=== PATIENT | male | born 1970 | race Caucasian/White ===

== ENCOUNTER 2017-11-03 03:55 | Emergency (ER) | payer MEDICARE, MEDICAID ==
[~2017-11-03] VITALS: Ht 170.2 cm; Wt 100.0 kg
[~2017-11-03 03:55] MED LIST: ALLO100T PO; AMLO10TA4 PO; BUSP5TAB3 PO; CLON2TAB PO; DIAZ5TAB PO; DULO60CA45 PO; FLUT1DIS4 INH; GABA-532 PO; HYDR50TA3 PO; LEVA15HF4 INH; LEVO25TA2 PO; MONT10TA21 PO; OLME40TA13 PO; OMEP20CA4 PO
[2017-11-03] MEDS ORDERED: normal saline 1000ML IV soln IVB ONE (04:05)
[2017-11-03 04:29] LABS: BASOPHILS # (AUTO) 0.1 X10'3 (0-0.2); BASOPHILS % (AUTO) 0.7 % (0-1); EOSINOPHILS # (AUTO) 0.4 X10'3 (0-0.9); EOSINOPHILS % (AUTO) 4.3 % (0-6); HEMATOCRIT 38.1 % (42.0-52.0); LYMPHOCYTES # (AUTO) 2.1 X10'3 (1.1-4.8); LYMPHOCYTES % (AUTO) 24.3 % (21-51); MEAN CORPUSCULAR HEMOGLOBIN 29.7 PG (27.0-31.0); MEAN CORPUSCULAR HGB CONC 34.1 % (33.0-36.5); MEAN CORPUSCULAR VOLUME 87.3 FL (78-98); MEAN PLATELET VOLUME 7.4 FL (7.4-10.4); MONOCYTES # (AUTO) 0.8 X10'3 (0-0.9); MONOCYTES % (AUTO) 9.8 % (2-12); NEUTROPHILS # (AUTO) 5.2 X10'3 (1.8-7.7); NEUTROPHILS % (AUTO) 60.9 % (42-75); PLATELET COUNT 436 X10'3 (140-440); RED BLOOD COUNT 4.37 X10'6 (4.70-6.10); WHITE BLOOD COUNT 8.6 X10'3 (4.5-11.0)
[2017-11-03 04:45] LABS: ALANINE AMINOTRANSFERASE 36 U/L (12-78); ALBUMIN 3.7 G/DL (3.4-5.0); ALBUMIN/GLOBULIN RATIO 0.8 (1.1-1.5); ALKALINE PHOSPHATASE 98 IU/L (46-116); ANION GAP 8 (8-16); ASPARTATE AMINO TRANSFERASE 23 U/L (10-37); BILIRUBIN,TOTAL 0.3 MG/DL (0.1-1.0); BLOOD UREA NITROGEN 7 MG/DL (7-18); BUN/CREATININE RATIO 8.2 (5.4-32.0); CALCIUM 9.4 MG/DL (8.5-10.1); CHLORIDE 99 MMOL/L (99-107); CREATININE 0.85 MG/DL (0.60-1.10); ETHANOL 0.017 GM/DL (0.0-0.010); GLUCOSE 145 MG/DL (70-104); POTASSIUM 3.2 MMOL/L (3.5-5.1); SODIUM 136 MMOL/L (135-145); TOTAL CARBON DIOXIDE 28.9 MMOL/L (24-32); TOTAL PROTEIN 8.1 G/DL (6.4-8.2); eGFR > 90 ML/MIN
[2017-11-03] MEDS ORDERED: potassium Cl 20 mEq SR tablet PO ONE (05:20)
[2017-11-03] MEDS ORDERED: potassium Cl 20 mEq SR tablet PO STA (05:31)
[2017-11-03 08:17] VITALS: BP 128/69
== END 2017-11-03 09:08 | disposition home or self-care (01) ==
LOC: ER 03:56
DX: E87.6 Hypokalemia (principal); F15.10 Other stimulant abuse, uncomplicated; E78.00 Pure hypercholesterolemia, unspecified; I10 Essential (primary) hypertension; J45.909 Unspecified asthma, uncomplicated; K21.9 Gastro-esophageal reflux disease without esophagitis; G89.29 Other chronic pain; M19.90 Unspecified osteoarthritis, unspecified site; I49.9 Cardiac arrhythmia, unspecified; Z98.890 Other specified postprocedural states; Z88.8 Allergy status to other drugs, medicaments and biological substances; Z79.899 Other long term (current) drug therapy
CPT/HCPCS: 36415; 71045; 80053; 80320; 85025; 93005; 99285; J7030

== ENCOUNTER 2018-02-25 11:17 | Emergency (ER) | payer MEDICARE, MEDICAID ==
[~2018-02-25] VITALS: Ht 170.2 cm; Wt 94.5 kg
[2018-02-25 11:20] VITALS: BP 163/86
[2018-02-25 11:40] LABS: BASOPHILS % (AUTO) 0.7 % (0-1); EOSINOPHILS # (AUTO) 0.6 X10'3 (0-0.9); EOSINOPHILS % (AUTO) 10.1 % (0-6); HEMATOCRIT 39.8 % (42.0-52.0); HEMOGLOBIN 13.6 g/dl (14.0-17.9); LYMPHOCYTES # (AUTO) 1.6 X10'3 (1.1-4.8); LYMPHOCYTES % (AUTO) 26.7 % (21-51); MEAN CORPUSCULAR HEMOGLOBIN 29.6 PG (27.0-31.0); MEAN CORPUSCULAR HGB CONC 34.1 % (33.0-36.5); MEAN PLATELET VOLUME 7.4 FL (7.4-10.4); MONOCYTES # (AUTO) 0.7 X10'3 (0-0.9); MONOCYTES % (AUTO) 11.1 % (2-12); NEUTROPHILS % (AUTO) 51.4 % (42-75); PLATELET COUNT 405 X10'3 (140-440); RED BLOOD COUNT 4.58 X10'6 (4.70-6.10); RED CELL DISTRIBUTION WIDTH 13.2 % (11.5-14.5); WHITE BLOOD COUNT 5.9 X10'3 (4.5-11.0)
[2018-02-25 11:53] LABS: INR 0.9 INR; PARTIAL THROMBOPLASTIN TIME 27 SECONDS (22-32); PROTHROMBIN TIME 9.7 SECONDS (9.0-12.0)
[2018-02-25 11:57] LABS: ALANINE AMINOTRANSFERASE 23 U/L (12-78); ALBUMIN 3.7 G/DL (3.4-5.0); ALBUMIN/GLOBULIN RATIO 0.9 (1.1-1.5); ALKALINE PHOSPHATASE 81 IU/L (46-116); ANION GAP 10 (8-16); ASPARTATE AMINO TRANSFERASE 15 U/L (10-37); BILIRUBIN,TOTAL 0.2 MG/DL (0.1-1.0); BLOOD UREA NITROGEN 8 MG/DL (7-18); BUN/CREATININE RATIO 11.8 (5.4-32.0); CALCIUM 9.6 MG/DL (8.5-10.1); CHLORIDE 98 MMOL/L (99-107); CREATININE 0.68 MG/DL (0.60-1.10); GLUCOSE 118 MG/DL (70-104); POTASSIUM 3.5 MMOL/L (3.5-5.1); SODIUM 135 MMOL/L (135-145); TOTAL CARBON DIOXIDE 26.8 MMOL/L (24-32); eGFR > 90 ML/MIN
== END 2018-02-25 15:05 | disposition home or self-care (01) ==
LOC: ER 11:17
DX: F15.10 Other stimulant abuse, uncomplicated (principal); R07.89 Other chest pain; R06.02 Shortness of breath; R11.0 Nausea; R10.9 Unspecified abdominal pain; E78.00 Pure hypercholesterolemia, unspecified; I10 Essential (primary) hypertension; J44.9 Chronic obstructive pulmonary disease, unspecified; K21.9 Gastro-esophageal reflux disease without esophagitis; G89.29 Other chronic pain; I49.9 Cardiac arrhythmia, unspecified; M19.90 Unspecified osteoarthritis, unspecified site; F11.10 Opioid abuse, uncomplicated; Z98.890 Other specified postprocedural states; Z88.8 Allergy status to other drugs, medicaments and biological substances; Z79.899 Other long term (current) drug therapy
CPT/HCPCS: 36415; 71045; 80053; 84484; 85025; 85610; 85730; 93005; 99285

== ENCOUNTER 2018-07-29 08:19 | Emergency (ER) | payer MEDICARE, MEDICAID ==
[~2018-07-29] VITALS: Ht 170.2 cm; Wt 92.0 kg
[~2018-07-29 08:19] MED LIST changes: +POLY255P2 PO
[2018-07-29 08:53] VITALS: BP 141/84
[2018-07-29] MEDS ORDERED: LIDOcaine 1.5% w/epinephrine 1:200,000 5ml ampul IJ ONE (09:25)
[2018-07-29] MEDS ORDERED: HYDR-569 PO (09:31)
== END 2018-07-29 09:50 | disposition home or self-care (01) ==
LOC: ER 08:20
DX: S62.390A Other fracture of second metacarpal bone, right hand, initial encounter for closed fracture (principal); I10 Essential (primary) hypertension; E78.00 Pure hypercholesterolemia, unspecified; J44.9 Chronic obstructive pulmonary disease, unspecified; K21.9 Gastro-esophageal reflux disease without esophagitis; M19.90 Unspecified osteoarthritis, unspecified site; G89.29 Other chronic pain; M54.9 Dorsalgia, unspecified; F17.210 Nicotine dependence, cigarettes, uncomplicated; F15.90 Other stimulant use, unspecified, uncomplicated; F11.90 Opioid use, unspecified, uncomplicated; Z88.8 Allergy status to other drugs, medicaments and biological substances; Y04.2XXA Assault by strike against or bumped into by another person, initial encounter; Y93.89 Activity, other specified; Y92.89 Other specified places as the place of occurrence of the external cause; Y99.8 Other external cause status
CPT/HCPCS: 29125; 73130; 99284; A6449; 64450

== ENCOUNTER 2018-08-09 11:48 | Emergency (ER) | payer MEDICARE, MEDICAID ==
[~2018-08-09] VITALS: Ht 170.2 cm; Wt 95.5 kg
[~2018-08-09 11:48] MED LIST changes: +HYDR-4383 PO
[2018-08-09 11:59] VITALS: BP 106/66
[2018-08-09] MEDS ORDERED: NALO4SPR NAS (12:21)
== END 2018-08-09 12:38 | disposition home or self-care (01) ==
LOC: ER 11:49
DX: F15.10 Other stimulant abuse, uncomplicated (principal); F11.10 Opioid abuse, uncomplicated; F41.0 Panic disorder [episodic paroxysmal anxiety]; R06.02 Shortness of breath; E78.00 Pure hypercholesterolemia, unspecified; I10 Essential (primary) hypertension; J45.909 Unspecified asthma, uncomplicated; J44.9 Chronic obstructive pulmonary disease, unspecified; K21.9 Gastro-esophageal reflux disease without esophagitis; G89.29 Other chronic pain; F41.9 Anxiety disorder, unspecified; M10.9 Gout, unspecified; Z79.899 Other long term (current) drug therapy; Z87.11 Personal history of peptic ulcer disease
CPT/HCPCS: 93005; 99284

== ENCOUNTER 2018-08-18 13:11 | Outpatient (CLI) | payer MEDICARE, MEDICAID ==
[2018-08-18 13:08] VITALS: BP 161/89
[~2018-08-18 13:11] MED LIST changes: +NALO4SPR NAS
== END 2018-08-18 13:39 | disposition home or self-care (01) ==
LOC: ORTHO 13:11
PROVIDERS: ATTEND Nurse Practitioner Family
DX: S62.390A Other fracture of second metacarpal bone, right hand, initial encounter for closed fracture (principal); F15.90 Other stimulant use, unspecified, uncomplicated; F11.90 Opioid use, unspecified, uncomplicated; F10.10 Alcohol abuse, uncomplicated; E03.9 Hypothyroidism, unspecified; E78.00 Pure hypercholesterolemia, unspecified; J44.9 Chronic obstructive pulmonary disease, unspecified; K21.9 Gastro-esophageal reflux disease without esophagitis; G89.29 Other chronic pain; I10 Essential (primary) hypertension; F41.9 Anxiety disorder, unspecified; F32.9 Major depressive disorder, single episode, unspecified; M10.9 Gout, unspecified; F17.210 Nicotine dependence, cigarettes, uncomplicated; Z86.73 Personal history of transient ischemic attack (TIA), and cerebral infarction without residual deficits; Z91.030 Bee allergy status; Z79.899 Other long term (current) drug therapy; Z88.8 Allergy status to other drugs, medicaments and biological substances; X58.XXXA Exposure to other specified factors, initial encounter; Y93.89 Activity, other specified; Y92.89 Other specified places as the place of occurrence of the external cause; Y99.8 Other external cause status
CPT/HCPCS: 73130; 99213

== ENCOUNTER 2018-11-20 07:20 | Emergency (ER) | payer MEDICARE, MEDICAID ==
[~2018-11-20] VITALS: Ht 170.2 cm; Wt 88.2 kg
[~2018-11-20 07:20] MED LIST changes: +POLY255P19 PO; -POLY255P2 PO
[2018-11-20 07:23] VITALS: BP 122/65
--- NOTE | 2018-11-20 07:35 | NUR ---
DR. WEEMS AT BEDSIDE.
[2018-11-20] MEDS ORDERED: normal saline 1000ML IV soln IVB ONE (07:40)
[2018-11-20] MEDS ORDERED: ondansetron 4mg rapidly disintigrating tab PO ONE (07:40)
[2018-11-20 08:00] LABS: BASOPHILS # (AUTO) 0.1 X10'3 (0-0.2); BASOPHILS % (AUTO) 0.9 % (0-1); EOSINOPHILS # (AUTO) 0.4 X10'3 (0-0.9); EOSINOPHILS % (AUTO) 4.2 % (0-6); HEMATOCRIT 40.7 % (42.0-52.0); LYMPHOCYTES # (AUTO) 2.4 X10'3 (1.1-4.8); LYMPHOCYTES % (AUTO) 25.2 % (21-51); MEAN CORPUSCULAR HEMOGLOBIN 29.8 PG (27.0-31.0); MEAN CORPUSCULAR HGB CONC 34.4 % (33.0-36.5); MEAN CORPUSCULAR VOLUME 86.8 FL (78-98); MEAN PLATELET VOLUME 7.5 FL (7.4-10.4); MONOCYTES # (AUTO) 0.9 X10'3 (0-0.9); MONOCYTES % (AUTO) 10.1 % (2-12); NEUTROPHILS # (AUTO) 5.6 X10'3 (1.8-7.7); NEUTROPHILS % (AUTO) 59.6 % (42-75); PLATELET COUNT 407 X10'3 (140-440); RED BLOOD COUNT 4.69 X10'6 (4.70-6.10); RED CELL DISTRIBUTION WIDTH 13.1 % (11.5-14.5); WHITE BLOOD COUNT 9.4 X10'3 (4.5-11.0)
[2018-11-20 08:18] LABS: ALANINE AMINOTRANSFERASE 27 U/L (12-78); ALBUMIN 3.9 G/DL (3.4-5.0); ALBUMIN/GLOBULIN RATIO 0.9 (1.1-1.5); ALKALINE PHOSPHATASE 72 IU/L (46-116); ANION GAP 14 (8-16); ASPARTATE AMINO TRANSFERASE 17 U/L (10-37); BILIRUBIN,TOTAL 0.3 MG/DL (0.1-1.0); BLOOD UREA NITROGEN 17 MG/DL (7-18); BUN/CREATININE RATIO 17.5 (5.4-32.0); CALCIUM 9.3 MG/DL (8.5-10.1); CHLORIDE 98 MMOL/L (99-107); CREATININE 0.97 MG/DL (0.60-1.10); GLUCOSE 109 MG/DL (70-104); LIPASE 241 U/L (73-393); POTASSIUM 3.8 MMOL/L (3.5-5.1); SODIUM 135 MMOL/L (135-145); TOTAL PROTEIN 8.2 G/DL (6.4-8.2); eGFR 83 ML/MIN
[2018-11-20] MEDS ORDERED: ONDA4TAB6 PO (08:38)
== END 2018-11-20 08:45 | disposition home or self-care (01) ==
LOC: ER 07:21
DX: R42 Dizziness and giddiness (principal); R11.0 Nausea; R10.84 Generalized abdominal pain; R19.7 Diarrhea, unspecified; E78.00 Pure hypercholesterolemia, unspecified; I10 Essential (primary) hypertension; J44.9 Chronic obstructive pulmonary disease, unspecified; K21.9 Gastro-esophageal reflux disease without esophagitis; M19.90 Unspecified osteoarthritis, unspecified site; G89.29 Other chronic pain; M10.9 Gout, unspecified; F15.90 Other stimulant use, unspecified, uncomplicated; F11.90 Opioid use, unspecified, uncomplicated; F17.200 Nicotine dependence, unspecified, uncomplicated; Z98.890 Other specified postprocedural states; Z88.8 Allergy status to other drugs, medicaments and biological substances; Z79.899 Other long term (current) drug therapy
CPT/HCPCS: 36415; 80053; 82948; 83690; 85025; 96360; 96361; 99283; J7030

== ENCOUNTER 2020-01-12 06:09 | Emergency (ER) | payer OTHER, MEDICAID ==
[~2020-01-12] VITALS: Ht 167.6 cm; Wt 95.5 kg
[~2020-01-12 06:09] MED LIST changes: -ALLO100T PO; -CLON2TAB PO; -DIAZ5TAB PO; -DULO60CA45 PO; -HYDR-4383 PO; +HYDR25TA4 PO; -HYDR50TA3 PO; -LEVO25TA2 PO; +LEVO50TA8 PO; +METF500T20 PO; -NALO4SPR NAS; +NICO-687 TD; -POLY255P19 PO
[2020-01-12 06:22] VITALS: BP 168/87
[2020-01-12] MEDS ORDERED: HYDR-3686 PO (06:25)
[2020-01-12] MEDS ORDERED: PRED20TA PO (06:25)
== END 2020-01-12 06:32 | disposition home or self-care (01) ==
LOC: ER 06:09
DX: L25.9 Unspecified contact dermatitis, unspecified cause (principal); E78.00 Pure hypercholesterolemia, unspecified; I10 Essential (primary) hypertension; J44.9 Chronic obstructive pulmonary disease, unspecified; G47.30 Sleep apnea, unspecified; K21.9 Gastro-esophageal reflux disease without esophagitis; M19.90 Unspecified osteoarthritis, unspecified site; G89.29 Other chronic pain; F41.9 Anxiety disorder, unspecified; F31.9 Bipolar disorder, unspecified; F41.0 Panic disorder [episodic paroxysmal anxiety]; F15.90 Other stimulant use, unspecified, uncomplicated; F11.90 Opioid use, unspecified, uncomplicated; F17.200 Nicotine dependence, unspecified, uncomplicated; Z98.890 Other specified postprocedural states; Z88.8 Allergy status to other drugs, medicaments and biological substances; Z79.899 Other long term (current) drug therapy
CPT/HCPCS: 99283

== ENCOUNTER 2020-05-04 19:31 | Emergency (ER) | payer MEDICARE, MEDICAID ==
[~2020-05-04] VITALS: Ht 170.2 cm; Wt 97.7 kg
[~2020-05-04 19:31] MED LIST changes: +METF-900 PO; -METF500T20 PO
[2020-05-04 20:12] LABS: BASOPHILS # (AUTO) 0.1 X10'3 (0-0.2); BASOPHILS % (AUTO) 1.1 % (0-1); EOSINOPHILS # (AUTO) 0.7 X10'3 (0-0.9); EOSINOPHILS % (AUTO) 7.2 % (0-6); HEMATOCRIT 39.9 % (42.0-52.0); HEMOGLOBIN 13.5 g/dl (14.0-17.9); LYMPHOCYTES # (AUTO) 1.5 X10'3 (1.1-4.8); LYMPHOCYTES % (AUTO) 15.6 % (21-51); MEAN CORPUSCULAR HEMOGLOBIN 29.3 PG (27.0-31.0); MEAN CORPUSCULAR HGB CONC 33.7 g/dL (33.0-36.5); MEAN CORPUSCULAR VOLUME 86.9 FL (78-98); MEAN PLATELET VOLUME 7.3 FL (7.4-10.4); MONOCYTES % (AUTO) 10.7 % (2-12); NEUTROPHILS # (AUTO) 6.1 X10'3 (1.8-7.7); NEUTROPHILS % (AUTO) 65.4 % (42-75); PLATELET COUNT 400 X10'3 (140-440); RED CELL DISTRIBUTION WIDTH 13.7 % (11.5-14.5); WHITE BLOOD COUNT 9.3 X10'3 (4.5-11.0)
[2020-05-04 20:21] LABS: ALANINE AMINOTRANSFERASE 40 U/L (12-78); ALBUMIN 3.7 G/DL (3.4-5.0); ALBUMIN/GLOBULIN RATIO 0.9 (1.1-1.5); ALKALINE PHOSPHATASE 80 IU/L (46-116); ANION GAP 10 (8-16); ASPARTATE AMINO TRANSFERASE 34 U/L (10-37); BILIRUBIN,TOTAL 0.3 MG/DL (0.1-1.0); BLOOD UREA NITROGEN 7 MG/DL (7-18); BUN/CREATININE RATIO 8.9 (5.4-32.0); CALCIUM 8.7 MG/DL (8.5-10.1); CHLORIDE 99 MMOL/L (99-107); CREATININE 0.79 MG/DL (0.60-1.10); GLUCOSE 112 MG/DL (70-104); SODIUM 139 MMOL/L (135-145); TOTAL CARBON DIOXIDE 30.4 MMOL/L (24-32); TOTAL PROTEIN 7.8 G/DL (6.4-8.2); eGFR > 90 ML/MIN
[2020-05-04 20:26] LABS: POTASSIUM 2.6 MMOL/L (3.5-5.1)
[2020-05-04] MEDS ORDERED: potassium Cl 20 mEq SR tablet PO STA (20:38)
[2020-05-04] MEDS ORDERED: potassium Cl 10 mEq/100mL bag IV ONE (20:40)
[2020-05-04] MEDS ORDERED: potassium CL 10mEq/100ml bag 100 ML IV ONE (20:55)
[2020-05-04 22:14] VITALS: BP 155/87
--- NOTE | 2020-05-04 22:16 | NUR ---
CALLED [facility] FOR [facility] AT 22:14 ETA 15 MINS
== END 2020-05-04 22:19 | disposition home or self-care (01) ==
LOC: ER 19:31
DX: E87.6 Hypokalemia (principal); R53.1 Weakness; R55 Syncope and collapse; E78.00 Pure hypercholesterolemia, unspecified; I10 Essential (primary) hypertension; J44.9 Chronic obstructive pulmonary disease, unspecified; G47.30 Sleep apnea, unspecified; K21.9 Gastro-esophageal reflux disease without esophagitis; M19.90 Unspecified osteoarthritis, unspecified site; G89.29 Other chronic pain; F41.9 Anxiety disorder, unspecified; F31.9 Bipolar disorder, unspecified; F15.90 Other stimulant use, unspecified, uncomplicated; F11.90 Opioid use, unspecified, uncomplicated; Z98.890 Other specified postprocedural states; Z86.69 Personal history of other diseases of the nervous system and sense organs; Z79.899 Other long term (current) drug therapy
CPT/HCPCS: 36415; 71045; 80053; 84484; 85025; 93005; 96365; 99285; J3480

== ENCOUNTER 2020-06-06 02:02 | Emergency (ER) | payer MEDICARE, MEDICAID ==
[~2020-06-06] VITALS: Ht 167.6 cm; Wt 95.5 kg
--- NOTE | 2020-06-06 02:20 | NUR ---
PATIENT ADMITS TO ETOH CONSUMTION UP TO ARRIVAL OF EMS, REPORTS SMOKING METHAMPHETAMINE YESTERDAY WELL SMOKING 1/2 PACK A DAY AND MARIJUANNA USE
[2020-06-06 02:28] LABS: BASOPHILS # (AUTO) 0.1 X10'3 (0-0.2); BASOPHILS % (AUTO) 1.1 % (0-1); EOSINOPHILS # (AUTO) 0.4 X10'3 (0-0.9); EOSINOPHILS % (AUTO) 6.5 % (0-6); HEMATOCRIT 37.6 % (42.0-52.0); LYMPHOCYTES # (AUTO) 1.7 X10'3 (1.1-4.8); LYMPHOCYTES % (AUTO) 26.9 % (21-51); MEAN CORPUSCULAR HEMOGLOBIN 29.6 PG (27.0-31.0); MEAN CORPUSCULAR HGB CONC 34.6 g/dL (33.0-36.5); MEAN CORPUSCULAR VOLUME 85.5 FL (78-98); MONOCYTES # (AUTO) 0.8 X10'3 (0-0.9); MONOCYTES % (AUTO) 12.9 % (2-12); NEUTROPHILS # (AUTO) 3.3 X10'3 (1.8-7.7); NEUTROPHILS % (AUTO) 52.6 % (42-75); PLATELET COUNT 354 X10'3 (140-440); RED CELL DISTRIBUTION WIDTH 14.2 % (11.5-14.5); WHITE BLOOD COUNT 6.3 X10'3 (4.5-11.0)
[2020-06-06 02:47] LABS: ALANINE AMINOTRANSFERASE 44 U/L (12-78); ALBUMIN 3.6 G/DL (3.4-5.0); ALBUMIN/GLOBULIN RATIO 0.9 (1.1-1.5); ALKALINE PHOSPHATASE 79 IU/L (46-116); ANION GAP 8 (8-16); ASPARTATE AMINO TRANSFERASE 33 U/L (10-37); BILIRUBIN,TOTAL 0.3 MG/DL (0.1-1.0); BLOOD UREA NITROGEN 8 MG/DL (7-18); BUN/CREATININE RATIO 10.8 (5.4-32.0); CALCIUM 8.6 MG/DL (8.5-10.1); CHLORIDE 98 MMOL/L (99-107); CREATININE 0.74 MG/DL (0.60-1.10); GLUCOSE 134 MG/DL (70-104); SODIUM 136 MMOL/L (135-145); TOTAL CARBON DIOXIDE 29.9 MMOL/L (24-32); TOTAL PROTEIN 7.5 G/DL (6.4-8.2); eGFR > 90 ML/MIN
[2020-06-06 02:53] LABS: POTASSIUM 2.8 MMOL/L (3.5-5.1)
[2020-06-06] MEDS ORDERED: potassium Cl 20 mEq SR tablet PO STA (02:59)
[2020-06-06] MEDS ORDERED: magnesium oxide 400mg tablet PO ONE (03:00)
[2020-06-06 04:07] VITALS: BP 142/87
== END 2020-06-06 04:09 | disposition home or self-care (01) ==
LOC: ER 02:02
DX: R07.89 Other chest pain (principal); E87.6 Hypokalemia; F10.10 Alcohol abuse, uncomplicated; R06.02 Shortness of breath; E78.00 Pure hypercholesterolemia, unspecified; I10 Essential (primary) hypertension; J45.909 Unspecified asthma, uncomplicated; J44.9 Chronic obstructive pulmonary disease, unspecified; K21.9 Gastro-esophageal reflux disease without esophagitis; M19.90 Unspecified osteoarthritis, unspecified site; G89.29 Other chronic pain; M10.9 Gout, unspecified; F41.9 Anxiety disorder, unspecified; F31.9 Bipolar disorder, unspecified; F15.90 Other stimulant use, unspecified, uncomplicated; F11.90 Opioid use, unspecified, uncomplicated; Z86.69 Personal history of other diseases of the nervous system and sense organs; Z87.11 Personal history of peptic ulcer disease; Z98.890 Other specified postprocedural states; Z88.8 Allergy status to other drugs, medicaments and biological substances; Z79.899 Other long term (current) drug therapy; Y90.9 Presence of alcohol in blood, level not specified
CPT/HCPCS: 36415; 71045; 80053; 83880; 84484; 85025; 93005; 99285

== ENCOUNTER 2020-07-12 09:58 | Emergency (ER) | payer BC, MEDICAID ==
[~2020-07-12] VITALS: Ht 170.2 cm; Wt 93.2 kg
[2020-07-12 10:51] LABS: BASOPHILS # (AUTO) 0.1 X10'3 (0-0.2); BASOPHILS % (AUTO) 0.8 % (0-1); EOSINOPHILS # (AUTO) 0.3 X10'3 (0-0.9); EOSINOPHILS % (AUTO) 3.2 % (0-6); HEMATOCRIT 38.6 % (42.0-52.0); HEMOGLOBIN 13.7 g/dl (14.0-17.9); LYMPHOCYTES % (AUTO) 9.3 % (21-51); MEAN CORPUSCULAR HGB CONC 35.4 g/dL (33.0-36.5); MEAN CORPUSCULAR VOLUME 84.9 FL (78-98); MEAN PLATELET VOLUME 7.7 FL (7.4-10.4); MONOCYTES # (AUTO) 1.6 X10'3 (0-0.9); MONOCYTES % (AUTO) 14.8 % (2-12); NEUTROPHILS # (AUTO) 7.7 X10'3 (1.8-7.7); NEUTROPHILS % (AUTO) 71.9 % (42-75); PLATELET COUNT 261 X10'3 (140-440); RED BLOOD COUNT 4.54 X10'6 (4.70-6.10); RED CELL DISTRIBUTION WIDTH 13.4 % (11.5-14.5); WHITE BLOOD COUNT 10.7 X10'3 (4.5-11.0)
[2020-07-12 11:15] LABS: ALANINE AMINOTRANSFERASE 75 U/L (12-78); ALBUMIN 3.6 G/DL (3.4-5.0); ALBUMIN/GLOBULIN RATIO 0.8 (1.1-1.5); ALKALINE PHOSPHATASE 107 IU/L (46-116); ANION GAP 8 (8-16); ASPARTATE AMINO TRANSFERASE 81 U/L (10-37); BILIRUBIN,TOTAL 0.7 MG/DL (0.1-1.0); BLOOD UREA NITROGEN 6 MG/DL (7-18); CALCIUM 8.7 MG/DL (8.5-10.1); CHLORIDE 89 MMOL/L (99-107); GLUCOSE 133 MG/DL (70-104); SODIUM 130 MMOL/L (135-145); TOTAL CARBON DIOXIDE 32.7 MMOL/L (24-32); TOTAL PROTEIN 7.9 G/DL (6.4-8.2); eGFR > 90 ML/MIN
[2020-07-12 11:19] LABS: POTASSIUM 2.8 MMOL/L (3.5-5.1)
[2020-07-12] MEDS ORDERED: potassium Cl 20 mEq SR tablet PO STA (11:29)
[2020-07-12] MEDS ORDERED: magnesium oxide 400mg tablet PO ONE (11:30)
[2020-07-12] MEDS ORDERED: POTASSIUM BICARB 20meq eff tab 20 MEQ TABLET.EFF PO STA (11:36)
[2020-07-12 12:06] VITALS: BP 137/84
[2020-07-12] MEDS ORDERED: POTASSIUM BICARB 20meq eff tab 20 MEQ TABLET.EFF PO ONE (12:30)
== END 2020-07-12 12:11 | disposition home or self-care (01) ==
LOC: ER 09:58
DX: E87.6 Hypokalemia (principal); R07.89 Other chest pain; R53.1 Weakness; R11.0 Nausea; E78.00 Pure hypercholesterolemia, unspecified; I10 Essential (primary) hypertension; J44.9 Chronic obstructive pulmonary disease, unspecified; G47.30 Sleep apnea, unspecified; K21.9 Gastro-esophageal reflux disease without esophagitis; M19.90 Unspecified osteoarthritis, unspecified site; G89.29 Other chronic pain; F41.9 Anxiety disorder, unspecified; F31.9 Bipolar disorder, unspecified; F15.90 Other stimulant use, unspecified, uncomplicated; F11.90 Opioid use, unspecified, uncomplicated; Z88.8 Allergy status to other drugs, medicaments and biological substances; Z98.890 Other specified postprocedural states; Z79.899 Other long term (current) drug therapy
CPT/HCPCS: 36415; 71045; 80053; 83880; 84484; 85025; 93005; 99285

== ENCOUNTER 2020-10-20 20:12 | Emergency (ER) | payer BC, MEDICAID ==
[~2020-10-20] VITALS: Ht 167.6 cm; Wt 96.3 kg
[2020-10-20 21:03] LABS: BASOPHILS # (AUTO) 0.1 X10'3 (0-0.2); BASOPHILS % (AUTO) 0.9 % (0-1); EOSINOPHILS # (AUTO) 0.5 X10'3 (0-0.9); EOSINOPHILS % (AUTO) 7.5 % (0-6); HEMATOCRIT 40.1 % (42.0-52.0); HEMOGLOBIN 13.6 g/dl (14.0-17.9); LYMPHOCYTES % (AUTO) 29.5 % (21-51); MEAN CORPUSCULAR HEMOGLOBIN 30.1 PG (27.0-31.0); MEAN CORPUSCULAR VOLUME 88.5 FL (78-98); MEAN PLATELET VOLUME 7.3 FL (7.4-10.4); MONOCYTES # (AUTO) 0.8 X10'3 (0-0.9); MONOCYTES % (AUTO) 11.8 % (2-12); NEUTROPHILS # (AUTO) 3.4 X10'3 (1.8-7.7); NEUTROPHILS % (AUTO) 50.3 % (42-75); PLATELET COUNT 321 X10'3 (140-440); RED BLOOD COUNT 4.53 X10'6 (4.70-6.10); RED CELL DISTRIBUTION WIDTH 13.6 % (11.5-14.5); WHITE BLOOD COUNT 6.8 X10'3 (4.5-11.0)
[2020-10-20 21:24] VITALS: BP 108/72
[2020-10-20 21:25] LABS: ALANINE AMINOTRANSFERASE 34 U/L (12-78); ALBUMIN 3.6 G/DL (3.4-5.0); ALBUMIN/GLOBULIN RATIO 0.9 (1.1-1.5); ALKALINE PHOSPHATASE 97 IU/L (46-116); ANION GAP 10 (8-16); ASPARTATE AMINO TRANSFERASE 27 U/L (10-37); BILIRUBIN,TOTAL 0.3 MG/DL (0.1-1.0); BLOOD UREA NITROGEN 7 MG/DL (7-18); CALCIUM 8.5 MG/DL (8.5-10.1); CHLORIDE 102 MMOL/L (99-107); GLUCOSE 139 MG/DL (70-104); POTASSIUM 3.6 MMOL/L (3.5-5.1); SODIUM 139 MMOL/L (135-145); TOTAL PROTEIN 7.6 G/DL (6.4-8.2); eGFR > 90 ML/MIN
--- NOTE | 2020-10-20 22:34 | NUR ---
UPON EDUCATION OF AMA FORM, PATIENT BECAME AGITATED WHEN ASKED WHY HE WOULD NOT LET THE ED FINISH HIS WORK-UP AND TREATMENT. HE SAID HE NEEDED TO GO HOME AND "FEED HIS DOG." APPROPRIATE USE OF EMS SERVICES WERE DISCUSSED. PATIENT WAS AGITATED AND YELLING HE EXITED THE ED.
== END 2020-10-20 22:40 | disposition left against medical advice (07) ==
LOC: ER 20:12
DX: R07.89 Other chest pain (principal); F10.99 Alcohol use, unspecified with unspecified alcohol-induced disorder; F15.90 Other stimulant use, unspecified, uncomplicated; I11.0 Hypertensive heart disease with heart failure; I50.9 Heart failure, unspecified; E78.00 Pure hypercholesterolemia, unspecified; J44.9 Chronic obstructive pulmonary disease, unspecified; K21.9 Gastro-esophageal reflux disease without esophagitis; G89.29 Other chronic pain; M19.90 Unspecified osteoarthritis, unspecified site; G47.30 Sleep apnea, unspecified; M10.9 Gout, unspecified; Z86.61 Personal history of infections of the central nervous system; Z88.8 Allergy status to other drugs, medicaments and biological substances; Z79.899 Other long term (current) drug therapy; Z95.0 Presence of cardiac pacemaker
CPT/HCPCS: 36415; 71045; 80053; 83880; 84484; 85025; 93005; 99285

== ENCOUNTER 2021-08-29 10:38 | Inpatient (IN) | payer BC, MEDICAID ==
[~2021-08-29] VITALS: Ht 167.6 cm; Wt 109.0 kg
[2021-08-29] MEDS ORDERED: normal saline 1000ML IV soln IVB ONE (11:55)
[2021-08-29 12:17] LABS: BASOPHILS % (AUTO) 0.3 % (0-1); EOSINOPHILS # (AUTO) 0.3 X10'3 (0-0.9); EOSINOPHILS % (AUTO) 4.3 % (0-6); HEMATOCRIT 35.6 % (42.0-52.0); HEMOGLOBIN 12.3 g/dl (14.0-17.9); LYMPHOCYTES # (AUTO) 0.5 X10'3 (1.1-4.8); LYMPHOCYTES % (AUTO) 6.4 % (21-51); MEAN CORPUSCULAR HEMOGLOBIN 30.2 PG (27.0-31.0); MEAN CORPUSCULAR HGB CONC 34.5 g/dL (33.0-36.5); MEAN CORPUSCULAR VOLUME 87.6 FL (78-98); MEAN PLATELET VOLUME 8.4 FL (7.4-10.4); MONOCYTES # (AUTO) 0.8 X10'3 (0-0.9); MONOCYTES % (AUTO) 10.1 % (2-12); NEUTROPHILS # (AUTO) 6.3 X10'3 (1.8-7.7); NEUTROPHILS % (AUTO) 78.9 % (42-75); PLATELET COUNT 170 X10'3 (140-440); RED BLOOD COUNT 4.07 X10'6 (4.70-6.10); RED CELL DISTRIBUTION WIDTH 15.3 % (11.5-14.5)
[2021-08-29 12:37] LABS: ALANINE AMINOTRANSFERASE 746 U/L (12-78); ALBUMIN 2.6 G/DL (3.4-5.0); ALKALINE PHOSPHATASE 695 IU/L (46-116); ANION GAP 17 (8-16); BILIRUBIN,TOTAL 5.3 MG/DL (0.1-1.0); BLOOD UREA NITROGEN 46 MG/DL (7-18); BUN/CREATININE RATIO 8.5 (5.4-32.0); CALCIUM 6.7 MG/DL (8.5-10.1); CHLORIDE 84 MMOL/L (99-107); CREATININE 5.44 MG/DL (0.60-1.10); GLUCOSE 127 MG/DL (70-104); SODIUM 121 MMOL/L (135-145); TOTAL CARBON DIOXIDE 19.7 MMOL/L (24-32); eGFR 11 ML/MIN
[2021-08-29 12:41] LABS: ALBUMIN/GLOBULIN RATIO 0.7 (1.1-1.5); ASPARTATE AMINO TRANSFERASE 1076 U/L (10-37); POTASSIUM 3.9 MMOL/L (3.5-5.1); TOTAL PROTEIN 6.5 G/DL (6.4-8.2)
[2021-08-29] MEDS ORDERED: normal saline 1000ML IV soln IV ONE (12:50)
[2021-08-29] MEDS ORDERED: piperacillin/tazo 3.375gm/50ml 50 ML IV ONE (12:50)
[2021-08-29] MEDS ORDERED: NOREPINEPHRINE BITARTRATE/D5W 250 ML IV PRN (14:20)
[2021-08-29] MEDS ORDERED: Insulin Reg/NS 100units/100mL 100 ML IV SCH (14:40)
[2021-08-29] MEDS ORDERED: magnesium 4gm in 100ml NS 100 ML IV PRN (14:40)
[2021-08-29] MEDS ORDERED: sodium phosphate inj. 15 MMOL in dextrose 5%-water 250 ML IV PRN (14:40)
[2021-08-29] MEDS ORDERED: FENTANYL-0.9 % NACL/PF 100 ML IV SCH ×2 (14:40→16:30)
[2021-08-29] MEDS ORDERED: Neutra Phos packet PO PRN (14:40)
[2021-08-29] MEDS ORDERED: magnesium Cl slow-release 64mg tablet PO PRN (14:40)
[2021-08-29] MEDS ORDERED: sodium phosphate inj. 30 MMOL in dextrose 5%-water 250 ML IV PRN (14:40)
[2021-08-29] MEDS ORDERED: albuterol 2.5 MG/3 ML nebule NEB PRN (14:40)
[2021-08-29] MEDS ORDERED: magnesium hydroxide 30ml (MOM) UD suspension PO PRN (14:40)
[2021-08-29] MEDS ORDERED: acetaminophen 325mg tablet PO PRN (14:40)
[2021-08-29] MEDS ORDERED: potassium Cl 40MEQ/250ML bag 270 ML IV PRN (14:40)
[2021-08-29] MEDS ORDERED: potassium Cl 40MEQ/1/2NS 520ml 520 ML IV PRN (14:40)
[2021-08-29] MEDS ORDERED: midazolam 100mg in NS 100ml 100 ML IV SCH (14:40)
[2021-08-29] MEDS ORDERED: ondansetron/PF 4mg/2ml inj IV PRN (14:40)
[2021-08-29] MEDS: normal saline 1000ml 1,000 ML IV SCH ×2 (14:40→22:07)
[2021-08-29] MEDS ORDERED: magnesium 2GM in 50ml NS 50 ML IV PRN (14:40)
[2021-08-29] MEDS ORDERED: dextrose 50%-water 50ml dispensing syringe IV PRN (14:40)
--- NOTE | 2021-08-29 14:45 | NUR ---
Assumed care of pt
--- NOTE | 2021-08-29 15:18 | NUR ---
Assisted with Art line setup
[2021-08-29 15:28] LABS: ABG BASE EXCESS -10.1 mmol/L (-2.0-2.0); ABG HCO3 15.6 mmol/L (22.0-26.0); ABG OXYGEN SATURATION 93.2 % (94-97); ABG PCO2 (T) 33.5 mmHg (35.0-48.0); FCOHb 0.2 % (0.0-3.9); FMetHb 0.1 % (0.0-1.5); FO2Hb 92.9 % (94-97); TOTAL HEMOGLOBIN 11.9 G/dl (14.0-18.0)
[2021-08-29] MEDS: NORepinephrine 8mg/ 250ml NS 250 ML IV PRN (15:52)
[2021-08-29] MEDS ORDERED: piperacillin/tazo 3.375gm/50ml 50 ML IV SCH (16:00)
[2021-08-29] MEDS ORDERED: albumin (Human) 5% 250ml 250 ML IV ONE (16:00)
[2021-08-29] MEDS ORDERED: SACU1TAB4 PO (16:02)
[2021-08-29] MEDS ORDERED: ATOR40TA72 PO (16:02)
[2021-08-29] MEDS ORDERED: CARV6.253 PO (16:02)
[2021-08-29] MEDS ORDERED: HYDR-3686 PO (16:02)
[2021-08-29] MEDS ORDERED: DULO30CA52 PO (16:02)
[2021-08-29] MEDS ORDERED: DUPI300S SQ (16:02)
[2021-08-29] MEDS ORDERED: POTA10TA37 PO (16:02)
[2021-08-29] MEDS ORDERED: ALBU17AE26 IH (16:02)
[2021-08-29] MEDS ORDERED: NORepinephrine inj. 8 MG in dextrose 5%-water 242 ML IV SCH (16:25)
--- NOTE | 2021-08-29 16:33 | NUR ---
relieving RN for break, pt is resting quietly gurney, alert and oriented x3, resp even and unlabored, increased levaphed gtt per art line reading and MAP
--- NOTE | 2021-08-29 17:02 | NUR ---
report to Melba SAUCEDO
[2021-08-29 17:42] LABS: URINE AMPHETAMINE SCREEN NEGATIVE (Neg); URINE BENZODIAZEPINES SCREEN NEGATIVE (Neg); URINE CANNABINOID SCREEN NEGATIVE (Neg); URINE COCAINE SCREEN NEGATIVE (Neg); URINE METHADONE SCREEN NEGATIVE (Neg); URINE OPIATE SCREEN NEGATIVE (Neg); URINE PHENCYCLIDINE SCREEN NEGATIVE (Neg)
[2021-08-29 17:45] LABS: TOTAL PROTEIN,URINE RANDOM 24.4 MG/DL
[2021-08-29 17:50] LABS: CLARITY,URINE SLIGHTLY CLOUDY (Clear); COLOR,URINE YELLOW (Yellow); GLUCOSE, URINE NEGATIVE (Neg); KETONES,URINE NEGATIVE (Neg); LEUKOCYTE ESTERASE ,URINE NEGATIVE (Neg); NITRITES, URINE NEGATIVE (Neg); OCCULT BLOOD,URINE SMALL (Neg); PROTEIN,URINE NEGATIVE (Neg); UA COLLECTION TYPE CLN CATCH MIDSTREAM; UROBILINOGEN,URINE 0.2 E.U/dL (0.2-1.0)
[2021-08-29 17:51] LABS: URINE BARBITUATE SCREEN NEGATIVE (Neg)
[2021-08-29] MEDS ORDERED: insulin Lispro (HumaLOG) vial - multi-dose SQ SCH (18:00)
[2021-08-29 18:06] LABS: PLATELET COUNT 168 X10'3 (140-440)
[2021-08-29 18:07] LABS: BACTERIA,URINE NONE SEEN /HPF (Neg); RBC,URINE 0-2 /HPF (0-2); WBC,URINE 0-4 /HPF (0-4)
[2021-08-29 18:08] LABS: CAL OXALATE CRYSTALS 3+ /HPF (NEGATIVE); SQUAMOUS EPITHELIAL CELL,UR FEW /LPF (FEW); TRANSITIONAL EPI CELLS,URINE FEW /HPF
[2021-08-29 18:09] LABS: RENAL CELLS, URINE FEW /HPF
[2021-08-29 18:26] LABS: ACETAMINOPHEN < 2.0 UG/ML (10-30)
[2021-08-29] MEDS: docusate sod 100mg capsule PO SCH (18:29)
[2021-08-29 18:36] LABS: D-DIMER 0.23 MG/L FEU (0-0.50); PARTIAL THROMBOPLASTIN TIME 38 SECONDS (22-32)
[2021-08-29 19:00] LABS: HIV ANTIBODY 1&2 RAPID NON-REACTIVE (Neg)
[2021-08-29 19:27] LABS: UA EOSINOPHILS NO EOS /HPF
--- NOTE | 2021-08-29 19:42 | NUR ---
Report called Holland ext [phone]
[2021-08-29] MEDS: vasopressin inj. 40 UNIT in normal saline 50ml IV soln 38 ML IV SCH (19:44)
[2021-08-29 21:00] VITALS: BP 102/46
[2021-08-29 22:00] VITALS: BP 74/39
--- NOTE | 2021-08-29 22:00 | NUR ---
after examining Art line under dressing, it appeared pulled out a little, unable to flush and no wave form on the monitor. Art line discontinued. No hematoma noted at site (Right Femoral).
[2021-08-29] MEDS: piperacillin/tazo 3.375gm/50ml 50 ML IV SCH (22:55)
[2021-08-29 23:00] VITALS: BP 100/45
[2021-08-30] VITALS (23 sets, daily range): BP systolic 80–136; BP diastolic 40–75
[2021-08-30 03:15] LABS: OXYGEN SATURATION (MIXED VEN) 57.3 % (60-80); PO2 MIXED VENOUS (TEMP COR) 30.4 mmHg (35-46)
[2021-08-30 03:23] LABS: BASOPHILS % (AUTO) 0.4 % (0-1); EOSINOPHILS # (AUTO) 0.2 X10'3 (0-0.9); EOSINOPHILS % (AUTO) 3.7 % (0-6); HEMATOCRIT 34.9 % (42.0-52.0); LYMPHOCYTES # (AUTO) 0.6 X10'3 (1.1-4.8); LYMPHOCYTES % (AUTO) 9.9 % (21-51); MEAN CORPUSCULAR HEMOGLOBIN 30.5 PG (27.0-31.0); MEAN CORPUSCULAR HGB CONC 34.4 g/dL (33.0-36.5); MEAN CORPUSCULAR VOLUME 88.8 FL (78-98); MEAN PLATELET VOLUME 8.5 FL (7.4-10.4); MONOCYTES # (AUTO) 0.8 X10'3 (0-0.9); MONOCYTES % (AUTO) 12.7 % (2-12); NEUTROPHILS # (AUTO) 4.7 X10'3 (1.8-7.7); NEUTROPHILS % (AUTO) 73.3 % (42-75); PLATELET COUNT 167 X10'3 (140-440); RED BLOOD COUNT 3.93 X10'6 (4.70-6.10); RED CELL DISTRIBUTION WIDTH 15.2 % (11.5-14.5); WHITE BLOOD COUNT 6.5 X10'3 (4.5-11.0)
[2021-08-30 03:36] LABS: PARTIAL THROMBOPLASTIN TIME 33 SECONDS (22-32)
[2021-08-30 03:47] LABS: ALANINE AMINOTRANSFERASE 579 U/L (12-78); ALBUMIN 2.5 G/DL (3.4-5.0); ALKALINE PHOSPHATASE 770 IU/L (46-116); ANION GAP 13 (8-16); ASPARTATE AMINO TRANSFERASE 805 U/L (10-37); BILIRUBIN,DIRECT 4.4 MG/DL (0-0.3); BILIRUBIN,TOTAL 5.1 MG/DL (0.1-1.0); BLOOD UREA NITROGEN 34 MG/DL (7-18); CALCIUM 6.1 MG/DL (8.5-10.1); CHLORIDE 96 MMOL/L (99-107); CREATININE 3.09 MG/DL (0.60-1.10); GLUCOSE 155 MG/DL (70-104); MAGNESIUM 1.5 MG/DL (1.5-2.4); POTASSIUM 3.8 MMOL/L (3.5-5.1); SODIUM 130 MMOL/L (135-145); TOTAL CARBON DIOXIDE 21.2 MMOL/L (24-32); TROPONIN I < 0.04 NG/ML (0.0-0.05); eGFR 21 ML/MIN
[2021-08-30 03:51] LABS: ALBUMIN/GLOBULIN RATIO 0.6 (1.1-1.5); PHOSPHORUS 3.8 MG/DL (2.3-4.5); TOTAL PROTEIN 6.4 G/DL (6.4-8.2)
[2021-08-30] MEDS: normal saline 1000ml 1,000 ML IV SCH ×4 (04:00→23:48)
[2021-08-30] MEDS: NORepinephrine 8mg/ 250ml NS 250 ML IV PRN ×2 (05:27→11:04)
--- NOTE | 2021-08-30 06:36 | NUR ---
Patient in room ICU 2041. I have received report from Holland SAUCEDO and had the opportunity to ask questions and assume patient care.
[2021-08-30] MEDS ORDERED: levoTHYROXINE sod inj. 100mcg/5 ml vial IV STA (06:44)
[2021-08-30] MEDS ORDERED: levoTHYROXINE 25mcg tablet PO SCH (07:00)
[2021-08-30 07:04] LABS: AMYLASE 50 U/L (25-115); LIPASE 188 U/L (73-393)
[2021-08-30] MEDS ORDERED: pantoprazole 40mg Tablet.DR PO SCH (07:30)
[2021-08-30] MEDS: docusate sod 100mg capsule PO SCH ×3 (08:00→18:36)
[2021-08-30 08:17] LABS: PLATELET ESTIMATE NORMAL; TARGET CELLS 1+; TOTAL CELLS COUNTED 100
[2021-08-30] MEDS: pantoprazole 40 MG vial IV SCH (08:47)
[2021-08-30] MEDS: heparin, porcine 5000 units/ml vial SQ SCH ×3 (08:48→23:46)
[2021-08-30] MEDS: chlordiazePOXIDE 5mg capsule PO SCH ×3 (08:48→19:23)
[2021-08-30] MEDS: duloxetine 30mg CAPSULE.DR PO SCH (08:48)
[2021-08-30] MEDS: piperacillin/tazo 3.375gm/50ml 50 ML IV SCH ×3 (08:49→23:46)
[2021-08-30] MEDS ORDERED: albumin (Human) 5% 250ml 250 ML IV ONE (10:55)
[2021-08-30] MEDS ORDERED: fentaNYL/PF 50MCG/1 ML 2ML syringe IV PRN (10:55)
[2021-08-30] MEDS ORDERED: NORepinephrine 8mg/ 250ml NS 250 ML IV PRN (11:57)
[2021-08-30] MEDS ORDERED: albumin (Human) 5% 250ml 750 ML IV SCH (12:15)
[2021-08-30] MEDS ORDERED: albumin (Human) 5% 250ml 750 ML IV ONE (12:15)
[2021-08-30] MEDS ORDERED: CALCIUM GLUC 1gm/50ml NACL,iso 50 ML IV ONE (12:20)
--- NOTE | 2021-08-30 12:20 | NUR ---
Initial: Pt admit DX septic/hypovolemic shock,transaminitis, acute renal failure, and DM per MD note. Serum Na 130 this AM up from 121 on admit receiving NS w/ hx etoh/meth/heroin abuse though tox screen negative per EMR. MCV WNL. 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 Pt no hx DM though takes metformin at home per EMR; no A1C this admit or A1C hx would benefit from check this admit. Per imaging notes, hepatic steatosis w/ mild jejunal enteritis. Pt pending MRCP today per MD to remain NPO at this time. Noted current ht 127in in EMR true ht 66in per prior admit hx making true BMI 40 this admit. LBM 08/29 w/ abdominal pain persisting per RN. Will continue to monitor for imaging results and nutrition intervention needs. Rec: 1. advance diet per MD to regular; consider carb controlled/heart healthy restrictions IF serum Na improves, elevated A1C this admit, and IF adequate intake once PO 2. monitor for ONS needs once PO diet 3. A1C this admit; no hx DM though takes metformin at home per EMR 4. bowel care per rx 5. weekly wts Addendum: 08/30/21 at [address] Amended: Links added.
[2021-08-30] MEDS: nystatin 15 GM powder TP SCH ×2 (13:29→20:17)
--- NOTE | 2021-08-30 17:48 | NUR ---
Patient received Albumin and Calcium Gluconate. Able to wean Levophed down through shift. Huge urine output. Reddened excoriation to groin with some open skin. Nystatin and calazime cream to groin. Med x 1 with Fentanyl for abdominal pain. Patient states pain is better. Received MRCP. Yolanda well.
--- NOTE | 2021-08-30 18:38 | NUR ---
Problems reprioritized. Patient report given, questions answered & plan of care reviewed with Monserrat SAUCEDO.
[2021-08-30] MEDS: montelukast 10mg tablet PO SCH (20:17)
[2021-08-31] VITALS (24 sets, daily range): BP systolic 84–142; BP diastolic 49–89
[2021-08-31] MEDS: chlordiazePOXIDE 5mg capsule PO SCH ×4 (02:11→19:16)
[2021-08-31 03:15] LABS: BASOPHILS % (AUTO) 0.6 % (0-1); EOSINOPHILS # (AUTO) 0.5 X10'3 (0-0.9); EOSINOPHILS % (AUTO) 10.2 % (0-6); HEMATOCRIT 34.4 % (42.0-52.0); HEMOGLOBIN 11.7 g/dl (14.0-17.9); LYMPHOCYTES # (AUTO) 0.9 X10'3 (1.1-4.8); LYMPHOCYTES % (AUTO) 17.9 % (21-51); MEAN CORPUSCULAR HEMOGLOBIN 29.9 PG (27.0-31.0); MEAN CORPUSCULAR HGB CONC 33.9 g/dL (33.0-36.5); MEAN CORPUSCULAR VOLUME 88.2 FL (78-98); MEAN PLATELET VOLUME 8.6 FL (7.4-10.4); MONOCYTES # (AUTO) 0.8 X10'3 (0-0.9); MONOCYTES % (AUTO) 15.4 % (2-12); NEUTROPHILS # (AUTO) 2.8 X10'3 (1.8-7.7); NEUTROPHILS % (AUTO) 55.9 % (42-75); PLATELET COUNT 152 X10'3 (140-440); RED CELL DISTRIBUTION WIDTH 15.2 % (11.5-14.5); WHITE BLOOD COUNT 5.1 X10'3 (4.5-11.0)
[2021-08-31 03:23] LABS: ALANINE AMINOTRANSFERASE 401 U/L (12-78); ALBUMIN 2.8 G/DL (3.4-5.0); ALKALINE PHOSPHATASE 904 IU/L (46-116); ANION GAP 12 (8-16); ASPARTATE AMINO TRANSFERASE 550 U/L (10-37); BILIRUBIN,TOTAL 4.8 MG/DL (0.1-1.0); BLOOD UREA NITROGEN 15 MG/DL (7-18); BUN/CREATININE RATIO 9.4 (5.4-32.0); CALCIUM 6.5 MG/DL (8.5-10.1); CHLORIDE 103 MMOL/L (99-107); GLUCOSE 113 MG/DL (70-104); MAGNESIUM 1.2 MG/DL (1.5-2.4); POTASSIUM 3.3 MMOL/L (3.5-5.1); SODIUM 140 MMOL/L (135-145); TOTAL CARBON DIOXIDE 24.8 MMOL/L (24-32); eGFR 46 ML/MIN
[2021-08-31 03:33] LABS: ALBUMIN/GLOBULIN RATIO 0.7 (1.1-1.5); PHOSPHORUS 2.5 MG/DL (2.3-4.5); TOTAL PROTEIN 6.7 G/DL (6.4-8.2)
[2021-08-31 03:48] LABS: PARTIAL THROMBOPLASTIN TIME 34 SECONDS (22-32)
[2021-08-31] MEDS: normal saline 1000ml 1,000 ML IV SCH ×2 (06:18→23:07)
--- NOTE | 2021-08-31 06:24 | NUR ---
Patient in bed resting no signs of distress noted . IV fluid infusing as ordered, vital signs documented in interventions, Blood glucose monitoring continued. Ciera care and catheter care done. Patient repositioned for comfort. Updated family member of patient condition via telephone. Call light within reach will continue to monitor and report changes
--- NOTE | 2021-08-31 06:26 | NUR ---
Problems reprioritized. Patient report given, questions answered & plan of care reviewed with Roxana SAUCEDO .
[2021-08-31] MEDS: docusate sod 100mg capsule PO SCH (08:00)
[2021-08-31] MEDS: piperacillin/tazo 3.375gm/50ml 50 ML IV SCH (08:52)
[2021-08-31] MEDS: pantoprazole 40 MG vial IV SCH (08:53)
[2021-08-31] MEDS: potassium Cl 40MEQ/250ML bag 270 ML IV PRN (08:53)
[2021-08-31] MEDS: duloxetine 30mg CAPSULE.DR PO SCH (08:53)
[2021-08-31] MEDS: levoTHYROXINE sod inj. 100mcg/5 ml vial IV SCH (08:54)
[2021-08-31] MEDS: heparin, porcine 5000 units/ml vial SQ SCH ×2 (08:54→15:50)
[2021-08-31] MEDS: nystatin 15 GM powder TP SCH ×3 (08:54→20:33)
[2021-08-31 12:48] LABS: HEP A AB, IGM Negative (Negative); HEP B CORE AB, TOT Negative (Negative); HEPATITIS C ANTIBODY <0.1 s/co ratio (0.0-0.9)
[2021-08-31 13:40] LABS: C DIFF ANTIGEN POSITIVE (NEGATIVE); C DIFF SPECIMEN=DIARRHEA? ACCEPTABLE; C DIFFICILE TOXINS A&B POSITIVE (Neg)
[2021-08-31] MEDS: vasopressin inj. 40 UNIT in normal saline 50ml IV soln 38 ML IV SCH (15:47)
[2021-08-31] MEDS: vancomycin 125mg/5ml ORAL solution 5ml UD oral syringe PO SCH ×2 (15:50→20:33)
--- NOTE | 2021-08-31 17:37 | NUR ---
Able to wean off Levophed. Hemodynamically stable. Stool sent to lab. + for C-Diff. Isolation precautions initiated. Yolanda clear liquid diet well without n/v. Minimal abd discomfort.
--- NOTE | 2021-08-31 18:24 | NUR ---
Problems reprioritized. Patient report given, questions answered & plan of care reviewed with Monserrat SAUCEDO.
[2021-08-31] MEDS: montelukast 10mg tablet PO SCH (20:33)
[2021-09-01] VITALS (24 sets, daily range): BP systolic 97–147; BP diastolic 55–99
[2021-09-01] MEDS: heparin, porcine 5000 units/ml vial SQ SCH ×3 (01:05→15:51)
[2021-09-01] MEDS: chlordiazePOXIDE 5mg capsule PO SCH ×4 (01:05→20:51)
--- NOTE | 2021-09-01 06:35 | NUR ---
Problems reprioritized. Patient report given, questions answered & plan of care reviewed with donta Topete.
[2021-09-01] MEDS: duloxetine 30mg CAPSULE.DR PO SCH (08:11)
[2021-09-01] MEDS: nystatin 15 GM powder TP SCH ×3 (08:12→20:50)
[2021-09-01] MEDS: vancomycin 125mg/5ml ORAL solution 5ml UD oral syringe PO SCH ×4 (08:12→20:51)
[2021-09-01] MEDS: pantoprazole 40 MG vial IV SCH (08:13)
[2021-09-01] MEDS: levoTHYROXINE sod inj. 100mcg/5 ml vial IV SCH (08:13)
[2021-09-01 08:20] LABS: ALANINE AMINOTRANSFERASE 296 U/L (12-78); ALBUMIN 2.7 G/DL (3.4-5.0); ANION GAP 7 (8-16); ASPARTATE AMINO TRANSFERASE 294 U/L (10-37); BILIRUBIN,TOTAL 4.1 MG/DL (0.1-1.0); BLOOD UREA NITROGEN 5 MG/DL (7-18); BUN/CREATININE RATIO 4.3 (5.4-32.0); CHLORIDE 99 MMOL/L (99-107); CREATININE 1.16 MG/DL (0.60-1.10); GLUCOSE 112 MG/DL (70-104); MAGNESIUM 1.4 MG/DL (1.5-2.4); POTASSIUM 3.2 MMOL/L (3.5-5.1); SODIUM 135 MMOL/L (135-145); TOTAL CARBON DIOXIDE 28.9 MMOL/L (24-32); eGFR 66 ML/MIN
[2021-09-01 08:24] LABS: ALBUMIN/GLOBULIN RATIO 0.7 (1.1-1.5); PHOSPHORUS 2.3 MG/DL (2.3-4.5); TOTAL PROTEIN 6.8 G/DL (6.4-8.2)
[2021-09-01 08:41] LABS: ALKALINE PHOSPHATASE 1072 IU/L (46-116)
[2021-09-01] MEDS ORDERED: Potassium Cl inj 40 MEQ in normal saline 250ml IV soln 250 ML IV ONE (09:25)
[2021-09-01] MEDS ORDERED: magnesium 2GM in 50ml NS 50 ML IV ONE (09:25)
[2021-09-01] MEDS: potassium Cl 40MEQ/250ML bag 270 ML IV PRN (12:28)
--- NOTE | 2021-09-01 18:27 | NUR ---
Patient in room ICU 2041. I have received report from Ashley SAUCEDO and had the opportunity to ask questions and assume patient care.
[2021-09-01] MEDS: normal saline 1000ml 1,000 ML IV SCH (19:42)
[2021-09-01] MEDS: montelukast 10mg tablet PO SCH (20:51)
[2021-09-02] VITALS (16 sets, daily range): BP systolic 113–165; BP diastolic 57–89
[2021-09-02] MEDS: chlordiazePOXIDE 5mg capsule PO SCH ×4 (01:24→19:48)
[2021-09-02] MEDS: heparin, porcine 5000 units/ml vial SQ SCH ×3 (01:25→19:52)
[2021-09-02 03:20] LABS: BASOPHILS # (AUTO) 0.1 X10'3 (0-0.2); BASOPHILS % (AUTO) 0.7 % (0-1); EOSINOPHILS # (AUTO) 0.3 X10'3 (0-0.9); EOSINOPHILS % (AUTO) 3.8 % (0-6); HEMATOCRIT 35.1 % (42.0-52.0); HEMOGLOBIN 11.7 g/dl (14.0-17.9); LYMPHOCYTES # (AUTO) 1.3 X10'3 (1.1-4.8); LYMPHOCYTES % (AUTO) 18.2 % (21-51); MEAN CORPUSCULAR HEMOGLOBIN 30.1 PG (27.0-31.0); MEAN CORPUSCULAR HGB CONC 33.2 g/dL (33.0-36.5); MEAN CORPUSCULAR VOLUME 90.7 FL (78-98); MEAN PLATELET VOLUME 8.6 FL (7.4-10.4); MONOCYTES # (AUTO) 1.2 X10'3 (0-0.9); MONOCYTES % (AUTO) 16.7 % (2-12); NEUTROPHILS # (AUTO) 4.5 X10'3 (1.8-7.7); NEUTROPHILS % (AUTO) 60.6 % (42-75); PLATELET COUNT 127 X10'3 (140-440); RED BLOOD COUNT 3.87 X10'6 (4.70-6.10); RED CELL DISTRIBUTION WIDTH 14.6 % (11.5-14.5); WHITE BLOOD COUNT 7.4 X10'3 (4.5-11.0)
[2021-09-02 03:34] LABS: PARTIAL THROMBOPLASTIN TIME 28 SECONDS (22-32)
[2021-09-02 03:44] LABS: ALANINE AMINOTRANSFERASE 246 U/L (12-78); ALBUMIN 2.7 G/DL (3.4-5.0); ALBUMIN/GLOBULIN RATIO 0.6 (1.1-1.5); ALKALINE PHOSPHATASE 853 IU/L (46-116); ANION GAP 9 (8-16); ASPARTATE AMINO TRANSFERASE 181 U/L (10-37); BILIRUBIN,TOTAL 3.2 MG/DL (0.1-1.0); BLOOD UREA NITROGEN 3 MG/DL (7-18); BUN/CREATININE RATIO 3.2 (5.4-32.0); CALCIUM 7.2 MG/DL (8.5-10.1); CHLORIDE 97 MMOL/L (99-107); CREATININE 0.93 MG/DL (0.60-1.10); GLUCOSE 110 MG/DL (70-104); MAGNESIUM 1.4 MG/DL (1.5-2.4); PHOSPHORUS 2.7 MG/DL (2.3-4.5); POTASSIUM 3.4 MMOL/L (3.5-5.1); SODIUM 135 MMOL/L (135-145); TOTAL CARBON DIOXIDE 29.1 MMOL/L (24-32); eGFR 86 ML/MIN
--- NOTE | 2021-09-02 05:29 | NUR ---
Patient needs IV potassium for 3.4 :) Addendum: 09/02/21 at 0529 by Yudelka Ruff RN Meant to send to pharmacy! Error
--- NOTE | 2021-09-02 06:15 | NUR ---
Problems reprioritized. Patient report given, questions answered & plan of care reviewed with Ashley SAUCEDO.
[2021-09-02] MEDS: pantoprazole 40 MG vial IV SCH (07:26)
[2021-09-02] MEDS: nystatin 15 GM powder TP SCH ×3 (07:27→22:40)
[2021-09-02] MEDS: duloxetine 30mg CAPSULE.DR PO SCH (07:27)
[2021-09-02] MEDS: vancomycin 125mg/5ml ORAL solution 5ml UD oral syringe PO SCH ×4 (07:28→22:40)
[2021-09-02] MEDS: levoTHYROXINE sod inj. 100mcg/5 ml vial IV SCH (07:28)
[2021-09-02] MEDS: ibuprofen tablet 400 MG TABLET PO PRN ×2 (11:29→19:50)
--- NOTE | 2021-09-02 11:39 | NUR ---
Reassessment: Pt placed on EC7 diet today, previously on Clear/Full liquid w/ mostly 75% intake of meals. D/w RN if possible to get A1C this admit. LBM 09/01 w/ PRN bowel care available. No nutrition intervention implemented at this time, will continue to monitor and make recommendations as appropriate. Rec: 1. Continue EC7 diet as tolerated; consider carb controlled/heart healthy restrictions IF serum Na improves, elevated A1C this admit, and IF adequate intake once PO 2. Monitor need for ONS/additional protein pending PO 3. A1C this admit; no hx DM though takes metformin at home per EMR 4. bowel care per rx 5. weekly wts Addendum: 09/02/21 at [address] Amended: Links added.
--- NOTE | 2021-09-02 18:29 | NUR ---
Patient in room ICU 2041. I have received report from SHERYL Ramirez and had the opportunity to ask questions and assume patient care.
[2021-09-02] MEDS: lactobacillus rhamnosus 10,000 MMU CELLS/CAPSULE PO SCH (19:48)
[2021-09-02] MEDS: montelukast 10mg tablet PO SCH (22:40)
[2021-09-03] VITALS (7 sets, daily range): BP systolic 94–152; BP diastolic 72–94
--- NOTE | 2021-09-03 01:35 | NUR ---
Report called to SHERYL Harris receiving nurse. Transferred to room 3009 via wheelchair with Belongings. Special Issues communicated to receiving nurse.
--- NOTE | 2021-09-03 01:45 | NUR ---
Patient in room PCU 3009. I have received report from Dee SAUCEDO and had the opportunity to ask questions and assume patient care.
[2021-09-03] MEDS: chlordiazePOXIDE 5mg capsule PO SCH ×4 (02:50→20:22)
--- NOTE | 2021-09-03 06:32 | NUR ---
Problems reprioritized. Patient report given, questions answered & plan of care reviewed with Elizabeth SAUCEDO.
--- NOTE | 2021-09-03 06:40 | NUR ---
Patient in room PCU 3009. I have received report from Kimberly and had the opportunity to ask questions and assume patient care. Patient is resting comfortably in bed, all needs met at this time.
[2021-09-03 06:45] LABS: BASOPHILS % (AUTO) 0.5 % (0-1); EOSINOPHILS # (AUTO) 0.3 X10'3 (0-0.9); EOSINOPHILS % (AUTO) 3.4 % (0-6); HEMOGLOBIN 11.7 g/dl (14.0-17.9); LYMPHOCYTES # (AUTO) 1.4 X10'3 (1.1-4.8); LYMPHOCYTES % (AUTO) 14.5 % (21-51); MEAN CORPUSCULAR HEMOGLOBIN 30.4 PG (27.0-31.0); MEAN CORPUSCULAR HGB CONC 33.4 g/dL (33.0-36.5); MEAN CORPUSCULAR VOLUME 91.1 FL (78-98); MEAN PLATELET VOLUME 8.4 FL (7.4-10.4); MONOCYTES # (AUTO) 1.2 X10'3 (0-0.9); MONOCYTES % (AUTO) 12.2 % (2-12); NEUTROPHILS # (AUTO) 6.7 X10'3 (1.8-7.7); NEUTROPHILS % (AUTO) 69.4 % (42-75); PLATELET COUNT 155 X10'3 (140-440); RED BLOOD COUNT 3.84 X10'6 (4.70-6.10); RED CELL DISTRIBUTION WIDTH 14.5 % (11.5-14.5); WHITE BLOOD COUNT 9.6 X10'3 (4.5-11.0)
[2021-09-03] MEDS: levoTHYROXINE 25mcg tablet PO SCH (07:00)
[2021-09-03 07:19] LABS: ALANINE AMINOTRANSFERASE 180 U/L (12-78); ALBUMIN 2.9 G/DL (3.4-5.0); ALBUMIN/GLOBULIN RATIO 0.6 (1.1-1.5); ALKALINE PHOSPHATASE 686 IU/L (46-116); ANION GAP 10 (8-16); ASPARTATE AMINO TRANSFERASE 98 U/L (10-37); BILIRUBIN,TOTAL 2.6 MG/DL (0.1-1.0); BLOOD UREA NITROGEN 3 MG/DL (7-18); BUN/CREATININE RATIO 3.5 (5.4-32.0); CALCIUM 7.8 MG/DL (8.5-10.1); CHLORIDE 99 MMOL/L (99-107); CREATININE 0.85 MG/DL (0.60-1.10); GLUCOSE 101 MG/DL (70-104); MAGNESIUM 1.2 MG/DL (1.5-2.4); PHOSPHORUS 4.1 MG/DL (2.3-4.5); POTASSIUM 3.3 MMOL/L (3.5-5.1); SODIUM 136 MMOL/L (135-145); TOTAL CARBON DIOXIDE 27.3 MMOL/L (24-32); TOTAL PROTEIN 7.6 G/DL (6.4-8.2); eGFR > 90 ML/MIN
[2021-09-03 07:31] LABS: HEMOGLOBIN A1C 6.9 % (4.5-6.2)
[2021-09-03] MEDS: nystatin 15 GM powder TP SCH ×4 (08:00→20:23)
[2021-09-03] MEDS: duloxetine 30mg CAPSULE.DR PO SCH (08:30)
[2021-09-03] MEDS: lactobacillus rhamnosus 10,000 MMU CELLS/CAPSULE PO SCH ×2 (08:30→20:22)
[2021-09-03] MEDS: heparin, porcine 5000 units/ml vial SQ SCH ×2 (08:30→20:23)
[2021-09-03] MEDS: vancomycin 125mg/5ml ORAL solution 5ml UD oral syringe PO SCH ×4 (10:31→20:29)
--- NOTE | 2021-09-03 17:15 | NUR ---
Patient's blood sugar was taken before dinner, it was 123. He appears to be resting comfortably and the aide just brought his dinner. He has not eaten much today, he ate 50% of his lunch.
--- NOTE | 2021-09-03 18:01 | NUR ---
Student documentation: I have reviewed and agree with all interventions, assessments performed and documented by Fred Lee.
--- NOTE | 2021-09-03 18:02 | NUR ---
Student Medication Administration: For this medication-pass time frame, all medication were reviewed, dispensed, administered and documented per hospital policy by Fred Lee.
--- NOTE | 2021-09-03 18:25 | NUR ---
Problems reprioritized. Patient report given, questions answered & plan of care reviewed with Kimberly SAUCEDO.
[2021-09-03] MEDS: montelukast 10mg tablet PO SCH (20:22)
[2021-09-03] MEDS: ibuprofen tablet 400 MG TABLET PO PRN (20:29)
[2021-09-03] MEDS ORDERED: potassium Cl 20 mEq SR tablet PO PRN (21:15)
[2021-09-03] MEDS: potassium Cl 20 mEq SR tablet PO PRN (23:06)
[2021-09-04 02:00] VITALS: BP 140/77
[2021-09-04] MEDS: chlordiazePOXIDE 5mg capsule PO SCH ×4 (02:26→21:26)
[2021-09-04] MEDS: potassium Cl 20 mEq SR tablet PO PRN (03:31)
[2021-09-04 06:00] VITALS: BP 134/82
--- NOTE | 2021-09-04 06:59 | NUR ---
Patient in room PCU 3009. I have received report from SHERYL Harris and had the opportunity to ask questions and assume patient care.
[2021-09-04 07:03] LABS: BASOPHILS # (AUTO) 0.1 X10'3 (0-0.2); BASOPHILS % (AUTO) 0.8 % (0-1); EOSINOPHILS # (AUTO) 0.5 X10'3 (0-0.9); HEMATOCRIT 33.4 % (42.0-52.0); HEMOGLOBIN 10.9 g/dl (14.0-17.9); LYMPHOCYTES # (AUTO) 1.4 X10'3 (1.1-4.8); LYMPHOCYTES % (AUTO) 14.8 % (21-51); MEAN CORPUSCULAR HEMOGLOBIN 29.9 PG (27.0-31.0); MEAN CORPUSCULAR HGB CONC 32.7 g/dL (33.0-36.5); MEAN CORPUSCULAR VOLUME 91.5 FL (78-98); MEAN PLATELET VOLUME 8.4 FL (7.4-10.4); MONOCYTES # (AUTO) 1.3 X10'3 (0-0.9); MONOCYTES % (AUTO) 13.9 % (2-12); NEUTROPHILS % (AUTO) 65.5 % (42-75); PLATELET COUNT 220 X10'3 (140-440); RED BLOOD COUNT 3.66 X10'6 (4.70-6.10); RED CELL DISTRIBUTION WIDTH 14.4 % (11.5-14.5); WHITE BLOOD COUNT 9.2 X10'3 (4.5-11.0)
[2021-09-04 07:27] LABS: ALANINE AMINOTRANSFERASE 132 U/L (12-78); ALBUMIN 2.7 G/DL (3.4-5.0); ALBUMIN/GLOBULIN RATIO 0.6 (1.1-1.5); ALKALINE PHOSPHATASE 530 IU/L (46-116); ANION GAP 10 (8-16); ASPARTATE AMINO TRANSFERASE 68 U/L (10-37); BILIRUBIN,TOTAL 1.9 MG/DL (0.1-1.0); BLOOD UREA NITROGEN 7 MG/DL (7-18); BUN/CREATININE RATIO 9.2 (5.4-32.0); CALCIUM 8.2 MG/DL (8.5-10.1); CHLORIDE 101 MMOL/L (99-107); CREATININE 0.76 MG/DL (0.60-1.10); GLUCOSE 128 MG/DL (70-104); MAGNESIUM 1.3 MG/DL (1.5-2.4); PHOSPHORUS 3.4 MG/DL (2.3-4.5); POTASSIUM 3.9 MMOL/L (3.5-5.1); SODIUM 140 MMOL/L (135-145); TOTAL CARBON DIOXIDE 29.5 MMOL/L (24-32); TOTAL PROTEIN 7.6 G/DL (6.4-8.2); eGFR > 90 ML/MIN
[2021-09-04] MEDS: nystatin 15 GM powder TP SCH ×3 (08:40→21:26)
[2021-09-04] MEDS: duloxetine 30mg CAPSULE.DR PO SCH (08:40)
[2021-09-04] MEDS: heparin, porcine 5000 units/ml vial SQ SCH ×2 (08:40→21:27)
[2021-09-04] MEDS: lactobacillus rhamnosus 10,000 MMU CELLS/CAPSULE PO SCH ×2 (08:41→21:26)
[2021-09-04] MEDS: ibuprofen tablet 400 MG TABLET PO PRN ×2 (08:41→21:26)
[2021-09-04] MEDS: vancomycin 125mg/5ml ORAL solution 5ml UD oral syringe PO SCH ×4 (08:41→21:27)
[2021-09-04] MEDS: levoTHYROXINE 25mcg tablet PO SCH (08:41)
[2021-09-04 11:00] VITALS: BP 134/75
--- NOTE | 2021-09-04 14:29 | NUR ---
Reassessment: A1c was obtained, currently well controlled at 6.9%. Pt continues on mechanical soft diet and eating well with average 75% PO intake. LBM 09/04 documented with diarrhea, positive for C.diff per EMR. No nutrition intervention implemented at this time. Will continue to follow. Rec: 1. Continue EC7 diet; consider carb controlled diet IF further BG level management is warranted, currently well controlled throughout LOS with A1c 6.9% 2. Monitor need for ONS/additional protein 3. Bowel care per rx 4. Weekly scaled weights Addendum: 09/04/21 at [address] Amended: Links added.
[2021-09-04 15:00] VITALS: BP 138/80
[2021-09-04 18:00] VITALS: BP 133/82
--- NOTE | 2021-09-04 19:15 | NUR ---
Problems reprioritized. Patient report given, questions answered & plan of care reviewed with Monserrat SAUCEDO.
[2021-09-04] MEDS: montelukast 10mg tablet PO SCH (21:26)
[2021-09-04 22:00] VITALS: BP 146/83
[2021-09-05 02:00] VITALS: BP 136/72
[2021-09-05] MEDS: chlordiazePOXIDE 5mg capsule PO SCH ×3 (03:03→14:00)
[2021-09-05 06:00] VITALS: BP 143/86
--- NOTE | 2021-09-05 06:12 | NUR ---
Problems reprioritized. Patient report given, questions answered & plan of care reviewed with Pat RN .
--- NOTE | 2021-09-05 06:43 | NUR ---
Patient in room PCU 3009. I have received report from Monserrat SAUCEDO and had the opportunity to ask questions and assume patient care.
[2021-09-05 07:05] LABS: BASOPHILS # (AUTO) 0.1 X10'3 (0-0.2); BASOPHILS % (AUTO) 1.2 % (0-1); EOSINOPHILS # (AUTO) 0.8 X10'3 (0-0.9); EOSINOPHILS % (AUTO) 8.6 % (0-6); HEMOGLOBIN 11.3 g/dl (14.0-17.9); LYMPHOCYTES # (AUTO) 1.6 X10'3 (1.1-4.8); LYMPHOCYTES % (AUTO) 16.4 % (21-51); MEAN CORPUSCULAR HEMOGLOBIN 30.8 PG (27.0-31.0); MEAN CORPUSCULAR HGB CONC 34.1 g/dL (33.0-36.5); MEAN CORPUSCULAR VOLUME 90.2 FL (78-98); MEAN PLATELET VOLUME 7.9 FL (7.4-10.4); MONOCYTES # (AUTO) 1.2 X10'3 (0-0.9); MONOCYTES % (AUTO) 12.7 % (2-12); NEUTROPHILS # (AUTO) 5.9 X10'3 (1.8-7.7); NEUTROPHILS % (AUTO) 61.1 % (42-75); PLATELET COUNT 327 X10'3 (140-440); RED BLOOD COUNT 3.66 X10'6 (4.70-6.10); RED CELL DISTRIBUTION WIDTH 14.6 % (11.5-14.5); WHITE BLOOD COUNT 9.6 X10'3 (4.5-11.0)
[2021-09-05 07:09] LABS: ALANINE AMINOTRANSFERASE 108 U/L (12-78); ALBUMIN 2.8 G/DL (3.4-5.0); ALBUMIN/GLOBULIN RATIO 0.5 (1.1-1.5); ALKALINE PHOSPHATASE 446 IU/L (46-116); ANION GAP 8 (8-16); ASPARTATE AMINO TRANSFERASE 56 U/L (10-37); BILIRUBIN,TOTAL 1.7 MG/DL (0.1-1.0); BLOOD UREA NITROGEN 9 MG/DL (7-18); BUN/CREATININE RATIO 12.3 (5.4-32.0); CHLORIDE 101 MMOL/L (99-107); CREATININE 0.73 MG/DL (0.60-1.10); GLUCOSE 100 MG/DL (70-104); MAGNESIUM 1.6 MG/DL (1.5-2.4); PHOSPHORUS 3.7 MG/DL (2.3-4.5); POTASSIUM 4.1 MMOL/L (3.5-5.1); SODIUM 138 MMOL/L (135-145); TOTAL CARBON DIOXIDE 28.8 MMOL/L (24-32); TOTAL PROTEIN 8.2 G/DL (6.4-8.2); eGFR > 90 ML/MIN
[2021-09-05] MEDS: vancomycin 125mg/5ml ORAL solution 5ml UD oral syringe PO SCH ×2 (07:40→13:50)
[2021-09-05] MEDS: duloxetine 30mg CAPSULE.DR PO SCH (07:40)
[2021-09-05] MEDS: heparin, porcine 5000 units/ml vial SQ SCH (07:40)
[2021-09-05] MEDS: lactobacillus rhamnosus 10,000 MMU CELLS/CAPSULE PO SCH (07:40)
[2021-09-05] MEDS: levoTHYROXINE 25mcg tablet PO SCH (07:41)
[2021-09-05] MEDS: ibuprofen tablet 400 MG TABLET PO PRN (07:48)
[2021-09-05] MEDS: nystatin 15 GM powder TP SCH ×2 (08:18→13:36)
[2021-09-05 11:00] VITALS: BP 143/80
[2021-09-05] MEDS ORDERED: VANC125C11 PO (14:10)
== END 2021-09-05 17:20 | disposition home or self-care (01) | DRG 871 ==
LOC: ER 10:38 → ED HOLD 14:58 → ICU 2S 19:58 → PCU 3S 09-03 01:50
PROVIDERS: ADMIT Surgery Surgical Critical Care; ATTEND Surgery Surgical Critical Care
PROC: 04HY32Z Insertion of Monitoring Device into Lower Artery, Percutaneous Approach (ICD-10-PCS; principal; 2021-08-29)
PROC: 06HY33Z Insertion of Infusion Device into Lower Vein, Percutaneous Approach (ICD-10-PCS; 2021-08-29)
PROC: B54BZZA Ultrasonography of Right Lower Extremity Veins, Guidance (ICD-10-PCS; 2021-08-29)
DX: A41.9 Sepsis, unspecified organism (principal); J96.01 Acute respiratory failure with hypoxia; K72.00 Acute and subacute hepatic failure without coma; R65.21 Severe sepsis with septic shock; J96.02 Acute respiratory failure with hypercapnia; R57.1 Hypovolemic shock; E87.1 Hypo-osmolality and hyponatremia; A04.72 Enterocolitis due to Clostridium difficile, not specified as recurrent; I13.0 Hypertensive heart and chronic kidney disease with heart failure and stage 1 through stage 4 chronic kidney disease, or unspecified chronic kidney disease; N17.9 Acute kidney failure, unspecified; E78.00 Pure hypercholesterolemia, unspecified; E11.22 Type 2 diabetes mellitus with diabetic chronic kidney disease; G89.4 Chronic pain syndrome; J44.9 Chronic obstructive pulmonary disease, unspecified; I50.9 Heart failure, unspecified; G47.30 Sleep apnea, unspecified; M19.90 Unspecified osteoarthritis, unspecified site; R74.01 Elevation of levels of liver transaminase levels; N18.30 Chronic kidney disease, stage 3 unspecified; K76.0 Fatty (change of) liver, not elsewhere classified; F41.0 Panic disorder [episodic paroxysmal anxiety]; R59.0 Localized enlarged lymph nodes; K63.89 Other specified diseases of intestine; M10.9 Gout, unspecified; E03.9 Hypothyroidism, unspecified; Z20.822 Contact with and (suspected) exposure to COVID-19; E87.6 Hypokalemia; F31.9 Bipolar disorder, unspecified; F11.90 Opioid use, unspecified, uncomplicated; F15.90 Other stimulant use, unspecified, uncomplicated; Z87.11 Personal history of peptic ulcer disease; Z95.0 Presence of cardiac pacemaker; Z88.8 Allergy status to other drugs, medicaments and biological substances; Z91.030 Bee allergy status; Z79.899 Other long term (current) drug therapy; Z79.4 Long term (current) use of insulin
CPT/HCPCS: 36415; 36556; 36600; 71045; 71250; 74176; 74181; 76700; 76770; 80053; 80305; 80329; 81001; 82150; 82248; 82570; 82803; 82810; 82948; 83036; 83605; 83690; 83735; 83880; 83935; 84100; 84145; 84156; 84300; 84443; 84484; 85007; 85018; 85025; 85379; 85384; 85610; 85730; 86703; 86704; 86705; 86709; 86803; 87040; 87045; 87046; 87081; 87207; 87324; 87449; 87635; 93005; 94760; 96361; 96365; 97110; 97161; 97530; 99291; 99292; C9113; C9803; G0378; J1644; J1815; J2543; J3010; J3475; J3480; J7030; J7050; P9045

== ENCOUNTER 2022-07-01 16:37 | Emergency (ER) | payer BC, MEDICAID ==
[~2022-07-01] VITALS: Ht 170.2 cm; Wt 122.7 kg
[~2022-07-01 16:37] MED LIST changes: +ALBU17AE26 IH; -AMLO10TA4 PO; +ATOR40TA72 PO; -BUSP5TAB3 PO; +CARV6.253 PO; +DULO30CA52 PO; +DUPI300S SQ; -FLUT1DIS4 INH; -GABA-532 PO; +HYDR-3686 PO; -HYDR25TA4 PO; -LEVA15HF4 INH; -METF-900 PO; -MONT10TA21 PO; -NICO-687 TD; -OLME40TA13 PO; +SACU1TAB4 PO; +VANC125C11 PO
[2022-07-01 16:48] VITALS: BP 135/63
[2022-07-01 18:54] LABS: BASOPHILS # (AUTO) 0.1 X10'3 (0-0.2); BASOPHILS % (AUTO) 1.3 % (0-1); EOSINOPHILS # (AUTO) 0.3 X10'3 (0-0.9); EOSINOPHILS % (AUTO) 4.2 % (0-6); HEMATOCRIT 36.5 % (42.0-52.0); LYMPHOCYTES # (AUTO) 1.2 X10'3 (1.1-4.8); LYMPHOCYTES % (AUTO) 16.6 % (21-51); MEAN CORPUSCULAR HEMOGLOBIN 29.3 PG (27.0-31.0); MEAN CORPUSCULAR HGB CONC 32.9 g/dL (33.0-36.5); MEAN CORPUSCULAR VOLUME 89.2 FL (78-98); MEAN PLATELET VOLUME 7.5 FL (7.4-10.4); MONOCYTES # (AUTO) 0.9 X10'3 (0-0.9); MONOCYTES % (AUTO) 12.7 % (2-12); NEUTROPHILS # (AUTO) 4.7 X10'3 (1.8-7.7); NEUTROPHILS % (AUTO) 65.2 % (42-75); PLATELET COUNT 353 X10'3 (140-440); RED CELL DISTRIBUTION WIDTH 15.1 % (11.5-14.5); WHITE BLOOD COUNT 7.2 X10'3 (4.5-11.0)
[2022-07-01 19:03] LABS: ALANINE AMINOTRANSFERASE 50 U/L (12-78); ALBUMIN 3.3 G/DL (3.4-5.0); ALBUMIN/GLOBULIN RATIO 0.7 (1.1-1.5); ALKALINE PHOSPHATASE 119 IU/L (46-116); ANION GAP 10 (8-16); ASPARTATE AMINO TRANSFERASE 41 U/L (10-37); BILIRUBIN,TOTAL 0.1 MG/DL (0.1-1.0); BLOOD UREA NITROGEN 6 MG/DL (7-18); BUN/CREATININE RATIO 8.7 (5.4-32.0); CALCIUM 8.5 MG/DL (8.5-10.1); CHLORIDE 100 MMOL/L (99-107); CREATININE 0.69 MG/DL (0.60-1.10); GLUCOSE 212 MG/DL (70-104); POTASSIUM 4.6 MMOL/L (3.5-5.1); SODIUM 137 MMOL/L (135-145); TOTAL CARBON DIOXIDE 26.6 MMOL/L (24-32); TOTAL PROTEIN 7.9 G/DL (6.4-8.2); eGFR > 90 ML/MIN
== END 2022-07-01 23:04 | disposition left against medical advice (07) ==
LOC: ER 16:38
DX: R10.9 Unspecified abdominal pain (principal); Z53.21 Procedure and treatment not carried out due to patient leaving prior to being seen by health care provider
CPT/HCPCS: 36415; 80053; 85025

== ENCOUNTER 2022-07-11 20:50 | Emergency (ER) | payer BC, MEDICAID ==
[~2022-07-11] VITALS: Ht 167.6 cm; Wt 120.8 kg
--- NOTE | 2022-07-11 22:02 | NUR ---
PT HAS A DEFIB.
[2022-07-11 22:40] LABS: BASOPHILS # (AUTO) 0.1 X10'3 (0-0.2); BASOPHILS % (AUTO) 0.9 % (0-1); EOSINOPHILS # (AUTO) 0.2 X10'3 (0-0.9); EOSINOPHILS % (AUTO) 2.2 % (0-6); HEMATOCRIT 40.9 % (42.0-52.0); HEMOGLOBIN 13.7 g/dl (14.0-17.9); LYMPHOCYTES # (AUTO) 1.3 X10'3 (1.1-4.8); LYMPHOCYTES % (AUTO) 12.3 % (21-51); MEAN CORPUSCULAR HEMOGLOBIN 29.9 PG (27.0-31.0); MEAN CORPUSCULAR HGB CONC 33.6 g/dL (33.0-36.5); MEAN CORPUSCULAR VOLUME 89.2 FL (78-98); MEAN PLATELET VOLUME 6.7 FL (7.4-10.4); MONOCYTES # (AUTO) 1.4 X10'3 (0-0.9); MONOCYTES % (AUTO) 13.1 % (2-12); NEUTROPHILS # (AUTO) 7.6 X10'3 (1.8-7.7); NEUTROPHILS % (AUTO) 71.5 % (42-75); PLATELET COUNT 435 X10'3 (140-440); RED BLOOD COUNT 4.58 X10'6 (4.70-6.10); RED CELL DISTRIBUTION WIDTH 15.2 % (11.5-14.5); WHITE BLOOD COUNT 10.6 X10'3 (4.5-11.0)
[2022-07-11 22:51] LABS: ALANINE AMINOTRANSFERASE 50 U/L (12-78); ALBUMIN 3.5 G/DL (3.4-5.0); ALBUMIN/GLOBULIN RATIO 0.7 (1.1-1.5); ALKALINE PHOSPHATASE 178 IU/L (46-116); ANION GAP 8 (8-16); ASPARTATE AMINO TRANSFERASE 61 U/L (10-37); BILIRUBIN,TOTAL 0.2 MG/DL (0.1-1.0); BLOOD UREA NITROGEN 17 MG/DL (7-18); BUN/CREATININE RATIO 10.1 (5.4-32.0); CALCIUM 8.6 MG/DL (8.5-10.1); CHLORIDE 92 MMOL/L (99-107); CREATININE 1.68 MG/DL (0.60-1.10); GLUCOSE 139 MG/DL (70-104); POTASSIUM 4.6 MMOL/L (3.5-5.1); SODIUM 131 MMOL/L (135-145); TOTAL CARBON DIOXIDE 31.2 MMOL/L (24-32); TOTAL PROTEIN 8.4 G/DL (6.4-8.2); eGFR 43 ML/MIN
[2022-07-11] MEDS ORDERED: ondansetron 4mg rapidly disintigrating tab PO ONE (23:45)
[2022-07-12 00:14] VITALS: BP 104/54
== END 2022-07-12 00:39 | disposition home or self-care (01) ==
LOC: ER 20:51
DX: E86.0 Dehydration (principal); N17.9 Acute kidney failure, unspecified; R53.1 Weakness; E87.1 Hypo-osmolality and hyponatremia; R06.02 Shortness of breath; R42 Dizziness and giddiness; I11.0 Hypertensive heart disease with heart failure; I50.9 Heart failure, unspecified; E78.00 Pure hypercholesterolemia, unspecified; J44.9 Chronic obstructive pulmonary disease, unspecified; K21.9 Gastro-esophageal reflux disease without esophagitis; M19.90 Unspecified osteoarthritis, unspecified site; G89.29 Other chronic pain; M10.9 Gout, unspecified; F41.9 Anxiety disorder, unspecified; F31.9 Bipolar disorder, unspecified; F15.90 Other stimulant use, unspecified, uncomplicated; F11.90 Opioid use, unspecified, uncomplicated; Z87.11 Personal history of peptic ulcer disease; Z86.69 Personal history of other diseases of the nervous system and sense organs; Z98.890 Other specified postprocedural states; Z72.89 Other problems related to lifestyle; Z88.8 Allergy status to other drugs, medicaments and biological substances; Z91.030 Bee allergy status; Z79.2 Long term (current) use of antibiotics; Z79.899 Other long term (current) drug therapy
CPT/HCPCS: 36415; 71045; 74176; 80053; 83880; 84145; 84484; 85025; 93005; 99285; A4615

== ENCOUNTER 2023-01-18 18:20 | Emergency (ER) | payer BC, MEDICAID ==
[~2023-01-18] VITALS: Ht 170.2 cm; Wt 118.0 kg
[2023-01-18 19:08] LABS: CLARITY,URINE CLEAR (Clear); COLOR,URINE YELLOW (Yellow); GLUCOSE, URINE >=1000 mg/dl (Neg); KETONES,URINE NEGATIVE (Neg); LEUKOCYTE ESTERASE ,URINE NEGATIVE (Neg); NITRITES, URINE NEGATIVE (Neg); OCCULT BLOOD,URINE NEGATIVE (Neg); PH,URINE 5.5 (4.8-8.0); PROTEIN,URINE NEGATIVE (Neg); UROBILINOGEN,URINE 0.2 E.U/dL (0.2-1.0)
[2023-01-18 19:11] LABS: BASOPHILS % (AUTO) 0.5 % (0-1); EOSINOPHILS # (AUTO) 0.1 X10'3 (0-0.9); EOSINOPHILS % (AUTO) 1.9 % (0-6); HEMATOCRIT 42.3 % (42.0-52.0); HEMOGLOBIN 13.9 g/dl (14.0-17.9); LYMPHOCYTES % (AUTO) 15.3 % (21-51); MEAN CORPUSCULAR HGB CONC 32.9 g/dL (33.0-36.5); MEAN CORPUSCULAR VOLUME 91.3 FL (78-98); MONOCYTES # (AUTO) 0.8 X10'3 (0-0.9); MONOCYTES % (AUTO) 12.5 % (2-12); NEUTROPHILS # (AUTO) 4.4 X10'3 (1.8-7.7); NEUTROPHILS % (AUTO) 69.8 % (42-75); PLATELET COUNT 376 X10'3 (140-440); RED BLOOD COUNT 4.63 X10'6 (4.70-6.10); RED CELL DISTRIBUTION WIDTH 15.3 % (11.5-14.5); WHITE BLOOD COUNT 6.3 X10'3 (4.5-11.0)
[2023-01-18 19:14] LABS: APTT 27 SECONDS (22-32); D-DIMER 0.21 MG/L FEU (0-0.50)
[2023-01-18 19:17] LABS: UA COLLECTION TYPE CLN CATCH MIDSTREAM
[2023-01-18 19:18] LABS: BACTERIA,URINE NONE SEEN /HPF (Neg); RBC,URINE NONE SEEN /HPF (0-2); SQUAMOUS EPITHELIAL CELL,UR FEW /LPF (FEW); WBC,URINE NONE SEEN /HPF (0-4)
[2023-01-18 19:24] LABS: ALANINE AMINOTRANSFERASE 57 U/L (12-78); ALBUMIN 3.6 G/DL (3.4-5.0); ALBUMIN/GLOBULIN RATIO 0.8 (1.1-1.5); ALKALINE PHOSPHATASE 119 IU/L (46-116); ANION GAP 3 (8-16); ASPARTATE AMINO TRANSFERASE 42 U/L (10-37); BILIRUBIN,TOTAL 0.2 MG/DL (0.1-1.0); BLOOD UREA NITROGEN 19 MG/DL (7-18); BUN/CREATININE RATIO 26.4 (5.4-32.0); CHLORIDE 98 MMOL/L (99-107); CREATININE 0.72 MG/DL (0.60-1.10); GLUCOSE 148 MG/DL (70-104); LIPASE 92 U/L (73-393); POTASSIUM 4.7 MMOL/L (3.5-5.1); SODIUM 135 MMOL/L (135-145); TOTAL CARBON DIOXIDE 34.3 MMOL/L (24-32); TOTAL PROTEIN 8.3 G/DL (6.4-8.2); eGFR > 90 ML/MIN
[2023-01-18] MEDS ORDERED: normal saline 1000ml 1,000 ML IV ONE (19:50)
[2023-01-18 21:30] LABS: HEMATOCRIT 41.4 % (42.0-52.0); HEMOGLOBIN 13.3 g/dl (14.0-17.9); MEAN CORPUSCULAR HEMOGLOBIN 29.4 PG (27.0-31.0); MEAN CORPUSCULAR HGB CONC 32.2 g/dL (33.0-36.5); MEAN CORPUSCULAR VOLUME 91.3 FL (78-98); MEAN PLATELET VOLUME 7.1 FL (7.4-10.4); PLATELET COUNT 344 X10'3 (140-440); RED BLOOD COUNT 4.54 X10'6 (4.70-6.10); RED CELL DISTRIBUTION WIDTH 14.9 % (11.5-14.5)
[2023-01-18 22:10] VITALS: BP 145/58
[2023-01-18] MEDS ORDERED: methylPREDNISolone sod succ 125mg/2ml vial IV ONE (22:30)
[2023-01-18] MEDS ORDERED: ROW500R RC (22:43)
[2023-01-18] MEDS ORDERED: WATER IV ONE (22:50)
[2023-01-18] MEDS ORDERED: DEXTROSE 5% IV ONE (22:50)
[2023-01-18] MEDS ORDERED: METHYLPREDNISOLONE SOD SUC IV ONE (22:50)
--- NOTE | 2023-01-18 23:24 | NUR ---
mac started by gely mayberry
--- NOTE | 2023-01-18 23:34 | NUR ---
iv dc'd pt being discharged dressing applied
[2023-01-19 08:35] LABS: OCCULT BLOOD STOOL POSITIVE (Neg)
== END 2023-01-18 23:36 | disposition home or self-care (01) ==
LOC: ER 18:21
DX: K62.5 Hemorrhage of anus and rectum (principal); R10.11 Right upper quadrant pain; I11.0 Hypertensive heart disease with heart failure; E78.00 Pure hypercholesterolemia, unspecified; J44.9 Chronic obstructive pulmonary disease, unspecified; K21.9 Gastro-esophageal reflux disease without esophagitis; F31.9 Bipolar disorder, unspecified; G89.29 Other chronic pain; M54.9 Dorsalgia, unspecified; I10 Essential (primary) hypertension; Z88.8 Allergy status to other drugs, medicaments and biological substances; Z79.899 Other long term (current) drug therapy; Z91.030 Bee allergy status; Z79.1 Long term (current) use of non-steroidal anti-inflammatories (NSAID); Z79.2 Long term (current) use of antibiotics
CPT/HCPCS: 36415; 74176; 80053; 81001; 82272; 83690; 85025; 85027; 85379; 85610; 85730; 86885; 86900; 86901; 96361; 96365; 99285; J2930; J7030; J7060

== ENCOUNTER 2025-01-06 15:02 | Emergency (ER) | payer BC, MEDICAID ==
[~2025-01-06] VITALS: Ht 167.6 cm; Wt 116.0 kg
[~2025-01-06 15:02] MED LIST changes: +CARV25TA2 PO; -CARV6.253 PO; +EMPA10TA PO; +FOLI1CAP8 PO; +FURO-150 PO; +LACT1CAP76 PO; +MENT7.6L8 PO; -SACU1TAB4 PO; +SACU1TAB7 PO; +SPIR25TA5 PO; -VANC125C11 PO
[2025-01-06 15:05] VITALS: TEMP 97.3
[2025-01-06 15:40] LABS: BASOPHILS # (AUTO) 0.1 X10'3 (0-0.2); BASOPHILS % (AUTO) 0.6 % (0-1); EOSINOPHILS # (AUTO) 0.2 X10'3 (0-0.9); EOSINOPHILS % (AUTO) 2.4 % (0-6); HEMATOCRIT 38.2 % (42.0-52.0); HEMOGLOBIN 12.4 g/dl (14.0-17.9); LYMPHOCYTES # (AUTO) 0.9 X10'3 (1.1-4.8); LYMPHOCYTES % (AUTO) 8.9 % (21-51); MEAN CORPUSCULAR HEMOGLOBIN 29.4 PG (27.0-31.0); MEAN CORPUSCULAR HGB CONC 32.4 g/dL (33.0-36.5); MEAN CORPUSCULAR VOLUME 90.8 FL (78-98); MEAN PLATELET VOLUME 7.4 FL (7.4-10.4); MONOCYTES # (AUTO) 0.7 X10'3 (0-0.9); MONOCYTES % (AUTO) 7.2 % (2-12); NEUTROPHILS # (AUTO) 8.1 X10'3 (1.8-7.7); NEUTROPHILS % (AUTO) 80.9 % (42-75); PLATELET COUNT 328 X10'3 (140-440); RED BLOOD COUNT 4.21 X10'6 (4.70-6.10); RED CELL DISTRIBUTION WIDTH 14.4 % (11.5-14.5); WHITE BLOOD COUNT 10.1 X10'3 (4.5-11.0)
[2025-01-06 15:50] LABS: ALANINE AMINOTRANSFERASE 30 U/L (12-78); ALBUMIN 3.4 G/DL (3.4-5.0); ALBUMIN/GLOBULIN RATIO 0.7 (1.1-1.5); ALKALINE PHOSPHATASE 148 IU/L (46-116); ANION GAP 6 (8-16); ASPARTATE AMINO TRANSFERASE 27 U/L (10-37); BILIRUBIN,TOTAL 0.3 MG/DL (0.1-1.0); BLOOD UREA NITROGEN 10 MG/DL (7-18); BUN/CREATININE RATIO 14.3 (10.0-20.0); CALCIUM 9.7 MG/DL (8.5-10.1); CHLORIDE 95 MMOL/L (99-107); GLUCOSE 198 MG/DL (70-104); POTASSIUM 4.5 MMOL/L (3.5-5.1); SODIUM 137 MMOL/L (135-145); TOTAL CARBON DIOXIDE 36.3 MMOL/L (24-32); TOTAL PROTEIN 8.3 G/DL (6.4-8.2); eCRCL 109 ML/MIN; eGFR > 90 ML/MIN
[2025-01-06 15:59] LABS: PRO BRAIN NATRIURETIC PEPTIDE 122 PG/ML (0-125)
[2025-01-06 18:09] VITALS: BP 139/62; PULSE 81; RESP 15
[2025-01-06 18:52] VITALS: O2SAT 97
== END 2025-01-06 20:07 | disposition home or self-care (01) ==
LOC: ER 15:03
DX: Z45.02 Encounter for adjustment and management of automatic implantable cardiac defibrillator (principal); I11.0 Hypertensive heart disease with heart failure; I50.9 Heart failure, unspecified; F31.9 Bipolar disorder, unspecified; E78.00 Pure hypercholesterolemia, unspecified; M19.90 Unspecified osteoarthritis, unspecified site; F41.9 Anxiety disorder, unspecified; K21.9 Gastro-esophageal reflux disease without esophagitis; J44.9 Chronic obstructive pulmonary disease, unspecified; G47.30 Sleep apnea, unspecified; Z88.8 Allergy status to other drugs, medicaments and biological substances; Z91.030 Bee allergy status; Z99.81 Dependence on supplemental oxygen
CPT/HCPCS: 36415; 71045; 80053; 83880; 84484; 85025; 93005; 99285

== ENCOUNTER 2025-06-08 17:27 | Emergency (ER) | payer BC, MEDICAID ==
[~2025-06-08] VITALS: Ht 167.6 cm; Wt 105.0 kg
[2025-06-08 17:37] VITALS: TEMP 98.2
--- NOTE | 2025-06-08 17:46 | ELECTROCARDIOGRAPH REPORT ---
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
[2025-06-08 18:03] LABS: MEAN PLATELET VOLUME 7.3 FL (7.4-10.4); RED CELL DISTRIBUTION WIDTH 14.8 % (11.5-14.5)
--- NOTE | 2025-06-08 18:20 | RADIOLOGY REPORT ---
CHEST RADIOGRAPH Indication: CP Technique: Single frontal view of the chest was obtained Comparison: DI CHEST,SINGLE VIEW on DOS: 01/06/25, DI CHEST,SINGLE VIEW on DOS: 02/10/24, CHEST,SINGLE V IEW on DOS: 07/11/22 FINDINGS: Lines and Tubes: None left-sided approach AICD is is noted with the right atrial lead in satisfactory position on the right ventricular lead not well-visualized. Lungs: No focal consolidation. Mild interstitial prominence. Pleura: No effusion. No pneumothorax. Cardiomediastinal contours: Mild cardiomegaly. Bones: No acute osseous abnormality. IMPRESSION: Mild pulmonary vascular congestion.
[2025-06-08 18:24] LABS: CREATININE 0.84 MG/DL (0.60-1.10); PRO BRAIN NATRIURETIC PEPTIDE 203 PG/ML (0-125); eCRCL 90 ML/MIN; eGFR > 90 ML/MIN
[2025-06-08 18:40] LABS: TOTAL CARBON DIOXIDE 42.5 MMOL/L (24-32)
--- NOTE | 2025-06-08 18:46 | Physician Documentation ---
History of Present Illness ~ Chief Complaint: Abdominal Pain Stated Complaint: SEE CHIEF COMPLAINT Time Seen by MD: 17:58 Primary Medical Doctor: Dr. Kelsey briseno Mode of Arrival: Ambulatory HPI 55-year-old male presents to the ED for sudden onset chest pain that was 5/10. States that the pain radiated from his upper chest to his abdomen. He states that the pain lasted for 10 minutes and slowly subsided. He adds that although he was on supplemental oxygen he noticed that his SpO2 monitor dropped during the time That he was in chest pain Patient has a history of CHF and is on oxygen supplemental only 25/05 Patient has a history of COPD, pacemaker defibrillator. He states he does not know what caused the CHF but used meth when he was younger and and discovered that when he was 33 he had chronic hypertension to have gone untreated Day of Onset: Jun 08, 2025 Medication Reconciliation Allergies: Coded Allergies: prochlorperazine edisylate (Unverified Allergy, Severe, THROAT CLOSES UP, 06/08/25) prochlorperazine maleate (Unverified Allergy, Severe, THROAT CLOSES, 06/08/25) bee venom protein (honey bee) (Verified Allergy, Intermediate, SWELLS A LOT WHEN STUNG, 06/08/25) Scheduled Atorvastatin Calcium (Atorvastatin Calcium), 1 TAB PO DAILY, (Reported) B Complex & C No.20/Folic Acid ([place] Caps Softgel), 1 CAP PO DAILY Carvedilol (Carvedilol), 1 TAB PO BID, (Reported) Duloxetine HCl (Duloxetine HCl), 1 CAP PO DAILY, (Reported) Dupilumab (Dupixent), 2 ML SQ Q2W, (Reported) Empagliflozin (Jardiance), 1 TAB PO DAILY, (Reported) Furosemide (Lasix), 20 MG PO DAILY Lactobacillus Casei/Folic Acid (Restora Rx Capsule), 1 CAP PO DAILY Levothyroxine Sodium (Levothyroxine Sodium), 1 TAB PO DAILY, (Reported) Menthol (Cough Drops), 1 TAB PO Q4H Omeprazole (Prilosec), 1 CAP PO DAILY, (Reported) Sacubitril/Valsartan (Entresto 49 mg-51 mg Tablet), 1 TAB PO BID, (Reported) Spironolactone (Spironolactone), 1 TAB PO DAILY, (Reported) Scheduled PRN Albuterol (Albuterol), 2 PUFF IH Q4H PRN for SOB or wheezing, (Reported) Hydroxyzine Hcl* (Atarax*), 1 TAB PO HS PRN for SLEEP OR ANXIETY, (Reported) Past Medical History Past Medical History: Seizures, Arrhythmia, Congestive Heart Failure, High Cholesterol, Hypertension, Asthma, COPD, Sleep Apnea, GERD, Peptic Ulcer Disease, Arthritis, Chronic Pain, Chronic Back Pain, Extremity Fracture, Gout, Anxiety, Bipolar, Panic Disorder Past Surgical History: orthopedic surgeries, other Other Past Family History: NONCONTRIBUTORY Alcohol Use: Abuse Drug Use: methamphetamine, heroin Lives with: Other Lives In: Home Occupation: disabled Review of Systems All Other Systems at this time: Reviewed and Negative ROS As stated above in the HPI, otherwise all systems are reviewed and negative. Physical Exam Vital Signs: Temperature: 98.2, Heart Rate: 83, Respiratory Rate: 25, BP: 106/52, Pulse Oximetry: 92, Weight: 105.000 Oxygen Flow Rate: 3.0 Physical Exam General: Alert, no apparent distress. Respiratory: Lungs clear, no respiratory distress. Chest: No accessory muscle use. Cardiovascular: Regular rate and rhythm, no murmurs. Gastrointestinal: Soft, nontender, nondistended. Bowels sounds present. Extremities: Normal range of motion, no deformity. Neurologic: Oriented x4. Psychiatric: Normal mood and affect. Skin: Normal color, warm and dry. No edema, no ecchymosis. Progress Results/Orders Results/Orders Vital Signs 06/08/25 06/08/25 06/08/25 06/08/25 17:37 17:50 18:56 19:01 Temp 98.2 Pulse 83 86 Resp 18 25 16 B/P (MAP) 106/52 123/67 (85) Pulse Ox 92 94 O2 Flow Rate 3.0 06/08/25 20:33 Pulse 87 Resp 20 B/P (MAP) 103/70 Pulse Ox 93 Laboratory Tests Test 06/08/25 17:52 06/08/25 19:50 White Blood Count 11.7 H Red Blood Count 3.87 L Hemoglobin 11.4 L Hematocrit 34.6 L Mean Corpuscular Volume 89.3 Mean Corpuscular Hemoglobin 29.4 Mean Corpuscular Hemoglobin Concent 32.9 L Red Cell Distribution Width 14.8 H Platelet Count 273 Mean Platelet Volume 7.3 L Neutrophils (%) (Auto) 80.9 H Lymphocytes (%) (Auto) 7.2 L Monocytes (%) (Auto) 6.9 Eosinophils (%) (Auto) 4.3 Basophils (%) (Auto) 0.7 Neutrophils # (Auto) 9.5 H Lymphocytes # (Auto) 0.8 L Monocytes # (Auto) 0.8 Eosinophils # (Auto) 0.5 Basophils # (Auto) 0.1 CBC Comment Sodium Level 134 L Potassium Level 4.7 Chloride Level 93 L Carbon Dioxide Level 42.5 *H Anion Gap -2 L Blood Urea Nitrogen 11 Creatinine 0.84 Estimated GFR/1.73 m2 > 90 BUN/Creatinine Ratio 13.1 Glucose Level 144 H Calcium Level 9.2 Troponin I High Sensitivity 6 9 Pro-B-Type Natriuretic Peptide 203 H Albumin 3.1 L Chemistry Comments Troponin I High Sens Percent Delta 50 Troponin I Hi Sens Absolute Change 3 Medical Decision Making Findings 65-year-old male has been asymptomatic and at his baseline throughout his stay in the ED. He denies any chest pain. He actually states that he would like to go home. I Did report to him that he is hypercapnic. Based on his previous lab values he appears to be a CO2 retainer likely secondary to chronic COPD diagnosi s. At this time based on my findings he presents to his baseline. I offered hospital admission he declined Differential Dx:Considerations: Include: angina, aortic dissection, chest wall pain, cholelithiasis, CHF, costochondritis, esophageal reflux/spasm, gastritis, herpes zoster, myocardial infarction, pericarditis, pleuritis, pancreatitis, pneumonia, pneumothorax, pulmonary embolus, other Departure Disposition: 01 HOME / SELF CARE / HOMELESS Impression: Primary Impression: Abdominal pain Additional Impression: Chest pain Condition: Stable Discharge Instructions: Abdominal Pain (Nonspecific) Referrals: NO PRIMARY CARE PROVIDER (PCP) Signature Scribe Signature: f Attestation: Scribed for Perry Wei Ophthalmology Technician by Perry Ramires NP . 06/08/25 20:13 PERRY WEI NP Jun 08, 2025 18:46
[2025-06-08 20:33] VITALS: BP 103/70; PULSE 87; RESP 20; O2SAT 93
== END 2025-06-08 20:34 | disposition home or self-care (01) ==
LOC: ER 17:28
DX: R07.89 Other chest pain (principal); I11.0 Hypertensive heart disease with heart failure; I50.9 Heart failure, unspecified; M19.90 Unspecified osteoarthritis, unspecified site; G47.30 Sleep apnea, unspecified; F31.9 Bipolar disorder, unspecified; E78.00 Pure hypercholesterolemia, unspecified; J44.9 Chronic obstructive pulmonary disease, unspecified; F15.90 Other stimulant use, unspecified, uncomplicated; F11.90 Opioid use, unspecified, uncomplicated; F10.10 Alcohol abuse, uncomplicated; K21.9 Gastro-esophageal reflux disease without esophagitis; Z91.030 Bee allergy status; Z88.8 Allergy status to other drugs, medicaments and biological substances; Z79.899 Other long term (current) drug therapy; Y90.9 Presence of alcohol in blood, level not specified
CPT/HCPCS: 36415; 71045; 80048; 83880; 84484; 85025; 93005; 99285